=== PATIENT | male | born 1975 | race Caucasian/White ===

== ENCOUNTER 2022-11-30 22:58 | Emergency (ER) | payer OTHER, SELFPAY ==
--- NOTE | 2022-11-30 | ECG_ITS ---
Test Reason : cp Blood Pressure : / mmHG Vent. Rate : 052 BPM Atrial Rate : 052 BPM P-R Int : 158 ms QRS Dur : 084 ms QT Int : 408 ms P-R-T Axes : 045 039 011 degrees QTc Int : 379 ms Sinus bradycardia Otherwise normal ECG No previous ECGs available Referred By: Generic ED Physician Electronically Signed By:JUAN BOWSER MD
--- NOTE | ~2022-11-30 | XR_ITS ---
EXAMINATION: XR CHEST CLINICAL INFORMATION: Chest pain COMPARISON: None TECHNIQUE: Frontal view of the chest was obtained. FINDINGS: Cardiac silhouette is normal in size. The lungs are well aerated. There is no lobar consolidation. No pleural effusion or pneumothorax. XR/XR chest 1V IMPRESSION: No acute pulmonary pathology.
[2022-11-30 23:07] VITALS: BP 130/43; PULSE 64; O2SAT 100
[2022-11-30 23:24] VITALS: BP 132/66; PULSE 53; RESP 16; TEMP 36.6; O2SAT 97; BMI 37.0
[2022-11-30 23:54] LABS: MANUAL DIFF FLAG NO
[2022-11-30 23:55] LABS: Basophils Percent Auto 0.4 % (0-2); Eosinophils Absolute Auto 0.2 X10*3/uL (0.0-0.4); Eosinophils Percent Auto 3.2 % (0-4); Hematocrit 42.2 % (42.0-52.0); Hemoglobin 14.2 g/dl (14.0-18.0); Imm Gran Abs Auto 0.02 X10*3/uL (0.00-0.03); Imm Gran Pct Auto 0.3 % (0.0-0.4); Lymphocytes Absolute Auto 2.4 X10*3/uL (1.2-4.9); Lymphocytes Percent Auto 33.4 % (20-40); Mean Corpuscular HGB Conc 33.6 g/dl (31.0-36.0); Mean Corpuscular Hemoglobin 30.6 pg (27.0-33.0); Mean Corpuscular Volume 90.9 fL (80.0-98.0); Mean Platelet Volume 9.3 fL (9.4-12.4); Monocytes Absolute Auto 0.7 X10*3/uL (0.1-1.2); Monocytes Percent Auto 9.9 % (2-11); Neutrophils Absolute Auto 3.8 x10*3/uL (2.0-8.3); Neutrophils Percent Auto 52.8 % (45-73); Platelet Count 283 X10*3/uL (160-400); Red Blood Count 4.64 X10*6/uL (4.60-5.80); White Blood Count 7.2 X10*3/uL (4.8-10.8)
[2022-12-01 00:38] LABS: Troponin-I High Sensitivity < 3.5 ng/L (<3.5-35.0)
[2022-12-01 00:56] LABS: Anion Gap 14 (12-20); Blood Urea Nitrogen 17 mg/dL (9-16); Calcium 9.4 mg/dL (8.4-10.2); Carbon Dioxide 26 mmol/L (22-29); Chloride 105 mmol/L (96-108); Creatinine Clr Calc Pharmacy 96.4; Estimated Glomerular Filt Rate > 60; Glucose Random 90 mg/dL (60-115); Potassium 4.5 mmol/L (3.3-5.1); Sodium 140 mmol/L (135-145)
[2022-12-01 03:37] VITALS: BP 119/63; PULSE 55; RESP 16; TEMP 36.7; O2SAT 98
--- NOTE | 2022-12-01 03:39 | MHC.EDTECH ---
PT WAS CALLED BACK TO TRIAGE TO DRAW REPEAT TROP AND RE TAKE VITALS SIGN .
[2022-12-01 04:04] LABS: Troponin-I High Sensitivity < 3.5 ng/L (<3.5-35.0)
[2022-12-01 07:17] VITALS: BP 121/52; PULSE 51; RESP 18; TEMP 36.8; O2SAT 99
[2022-12-01 07:42] VITALS: BP 128/66; PULSE 51; RESP 17; TEMP 36.8; O2SAT 99
[2022-12-01 08:38] VITALS: BP 148/45; PULSE 53; RESP 17; TEMP 36.6; O2SAT 98
[2022-12-01 09:11] LABS: Alanine Aminotransferase 28 U/L (0-40); Albumin Level 4.4 g/dL (3.5-5.0); Alkaline Phosphatase 69 U/L (39-117); Aspartate Amino Transferase 16 U/L (5-37); Bilirubin Direct 0.2 mg/dL (0.0-0.5); Bilirubin Total 1.1 mg/dL (0.0-1.0); Total Protein 7.9 g/dL (6.5-8.0)
[2022-12-01 09:27] LABS: B Type Natriuretic Peptide < 10 pg/mL (<100)
[2022-12-01 09:32] LABS: TSH reflex Free T4 2.42 uIU/mL (0.32-4.0)
--- NOTE | 2022-12-01 09:47 | ED_ITS ---
HPI - Chest Pain General Chief Complaint: Chest Pain Stated Complaint: cp Time Seen by Provider: 12/01/22 08:03 Source: patient Mode of arrival: ambulatory History of Present Illness HPI narrative: 47-year-old male with a past medical history of self-reported arrhythmia, present to the ED complaining chest pain that started yesterday described as sharp lasting a few minutes with associated palpitations and mild SOB. Reports mild room spinning dizziness associated with chest pain. Asymptomatic at present. Denies headache, vision loss, nausea, vomiting, paresthesias, new or worsening pedal edema MD complaint: chest pain Related Data Allergies Allergy/AdvReac Type Severity Reaction Status Date / Time No Known Allergies Allergy Verified 11/30/22 23:29 Review of Systems Review of Systems: Constitutional: No Fever, No Chills, No Fatigue, No Malaise ENT/Mouth: No Ear Pain, No Nasal Congestion, No sore throat, No Rhinorrhea, No Swallowing Difficulty Eyes: No Eye Pain, No Swelling, No Redness Cardiovascular: + Chest Pain, + SOB, No Dyspnea on Exertion, No Orthopnea, No Edema, + Palpitations Respiratory: No Cough, No Sputum, No Dyspnea Gastrointestinal: No Nausea, No Vomiting, No Diarrhea, No Constipation, No Abdominal pain Genitourinary: No Dysuria, No Hematuria, No Flank Pain, No Urinary Flow Changes Musculoskeletal: No joint pain, No Myalgias, No Joint Swelling Skin: No Skin Lesions, No rash Neuro: No Weakness, No Numbness, No Paresthesias, No Loss of Consciousness, + Dizziness (resolved), No Headache Yes all other systems are reviewed and are negative Constitutional: Constitutional: Reports as per [facility] Past Medical History Attestation statement: The following information was validated with the patient. Social History Social History Advance Directives: No Physical Exam Vital Signs: Vital Signs: Last Vital Signs Temp 97.8 F 12/01/22 08:38 Pulse 53 12/01/22 08:38 Resp 17 12/01/22 08:38 BP 148/45 H 12/01/22 08:38 Pulse Ox 98 12/01/22 08:38 O2 Del Method 12/01/22 08:38 BMI result Body Mass Index 37.0 Const: General: cooperative, healthy appearing and no acute distress Orie ntation/consciousness: patient oriented x3 Limitations: no limitations HEENT: Head: Yes normal to inspection and Yes atraumatic Ears: hearing grossly normal bilaterally General nose exam: Normal external nose present Face and sinus: Yes normal facial exam Eyes: General: appearance normal, both eyes and all related structures EOM: EOMs intact bilaterally Neck: Neck: Yes normal visual inspection and Yes no meningeal signs Resp: Effort & Inspection: normal respiratory effort and no respiratory distress Auscultation: clear to auscultation bilaterally, no crackles, no rales, no rhonchi and no wheezes Cardio: Rate: regular rate Heart sounds: S1 normal heart sound present and S2 normal heart sound present GI: Inspection: Yes normal to inspection Palpation (GI): Soft to palpation, nontender, no guarding and not rigid Skin: Rashes: no rashes Wounds: no wounds Neuro: General: patient oriented x3, tone normal and no meningeal signs Gait exam (Neuro): Normal gait present Extrem: Other: 1+ bilateral pitting edema General: Yes normal to inspection Course Course Course Narrative: -labs reassuring. Troponin x2 negative. TSH WNL -CXR unremarkable Results discussed with patient including worrisome signs and symptoms and strict return precautions, and when to return to the emergency department. They verbalized understanding and feel safe for discharge at this time. Medical Decision Making Medical Decision Making [facility] Narrative: 47-year-old male with a past medical history of self-reported arrhythmia, present to the ED complaining chest pain that started yesterday described as sharp lasting a few minutes with associated palpitations and mild SOB. On exam vital signs stable, NAD, nontoxic appearing, asymptomatic, lungs CTA, abdomen soft/nontender, chronic pedal edema noted. Concern for ACS. Symptoms atypical for PE/CHF or pneumonia. Plan: EKG, labs, CXR Please refer to course for remaining clinical decision making, interpretation of labs/imaging results, and discussions with consultants and/or family members. Differential Diagnosis Differential Diagnoses: The differential diagnosis associated with the prese ntation includes as above Admission/Observation Consideration of admission/observation: Escalation of care including admission/ observation considered Lab Data [facility] Lab Attestation statement: I reviewed the patient's lab results. 11/30/22 23:49 11/30/22 23:49 Labs: Lab Results 11/30/22 11/30/22 11/30/22 Range/Units 23:49 23:49 23:49 WBC 7.2 (4.8-10.8) X10*3/uL RBC 4.64 (4.60-5.80) X10*6/uL Hgb 14.2 (14.0-18.0) g/dl Hct 42.2 (42.0-52.0) % MCV 90.9 (80.0-98.0) fL MCH 30.6 (27.0-33.0) pg MCHC 33.6 (31.0-36.0) g/dl RDW 13.0 (11.0-16.0) % Plt Count 283 (160-400) X10*3/uL MPV 9.3 L (9.4-12.4) fL Immature Gran % (Auto) 0.3 (0.0-0.4) % Neut % (Auto) 52.8 (45-73) % Lymph % (Auto) 33.4 (20-40) % [place] % (Auto) 9.9 (2-11) % Eos % (Auto) 3.2 (0-4) % Baso % (Auto) 0.4 (0-2) % Lymph # (Auto) 2.4 (1.2-4.9) X10*3/uL [place] # (Auto) 0.7 (0.1-1.2) X10*3/uL Eos # (Auto) 0.2 (0.0-0.4) X10*3/uL Baso # (Auto) 0.0 (0.0-0.2) X10*3/uL Abs Immat Gran (auto) 0.02 (0.00-0.03) X10*3/uL Absolute Neuts (auto) 3.8 (2.0-8.3) x10*3/uL Absolute Nucleated RBC 0.000 (0.0-0.012) X10*3/uL Nucleated RBC % (auto) 0.0 (0.0-0.2) /100WBC Sodium 140 (135-145) mmol/L Potassium 4.5 (3.3-5.1) mmol/L Chloride 105 (96-108) mmol/L Carbon Dioxide 26 (22-29) mmol/L Anion Gap 14 (12-20) BUN 17 H (9-16) mg/dL Creatinine 1.20 (0.5-1.4) mg/dL Estim Creat Clear Calc 96.4 Estimated GFR > 60 Random Glucose 90 (60-115) mg/dL Calcium 9.4 (8.4-10.2) mg/dL Magnesium (1.6-2.6) mg/dL Total Bilirubin (0.0-1.0) mg/dL Direct Bilirubin (0.0-0.5) mg/dL AST (5-37) U/L ALT (0-40) U/L Alkaline Phosphatase (39-117) U/L Troponin I High Sens < 3.5 (<3.5-35.0) ng/L B-Natriuretic Peptide (<100) pg/mL Total Protein (6.5-8.0) g/dL Albumin (3.5-5.0) g/dL TSH (0.32-4.0) uIU/mL 12/01/22 12/01/22 12/01/22 Range/Units 03:36 08:30 08:31 WBC (4.8-10.8) X10*3/uL RBC (4.60-5.80) X10*6/uL Hgb (14.0-18.0) g/dl Hct (42.0-52.0) % MCV (80.0-98.0) fL MCH (27.0-33.0) pg MCHC (31.0-36.0) g/dl RDW (11.0-16.0) % Plt Count (160-400) X10*3/uL MPV (9.4-12.4) fL Immature Gran % (Auto) (0.0-0.4) % Neut % (Auto) (45-73) % Lymph % (Auto) (20-40) % [place] % (Auto) (2-11) % Eos % (Auto) (0-4) % Baso % (Auto) (0-2) % Lymph # (Auto) (1.2-4.9) X10*3/uL [place] # (Auto) (0.1-1.2) X10*3/uL Eos # (Auto) (0.0-0.4) X10*3/uL Baso # (Auto) (0.0-0.2) X10*3/uL Abs Immat Gran (auto) (0.00-0.03) X10*3/uL Absolute Neuts (auto) (2.0-8.3) x10*3/uL Absolute Nucleated RBC (0.0-0.012) X10*3/uL Nucleated RBC % (auto) (0.0-0.2) /100WBC Sodium (135-145) mmol/L Potassium (3.3-5.1) mmol/L Chloride (96-108) mmol/L Carbon Dioxide (22-29) mmol/L Anion Gap (12-20) BUN (9-16) mg/dL Creatinine (0.5-1.4) mg/dL Estim Creat Clear Calc Estimated GFR Random Glucose (60-115) mg/dL Calcium (8.4-10.2) mg/dL Magnesium 2.0 (1.6-2.6) mg/dL Total Bilirubin 1.1 H (0.0-1.0) mg/dL Direct Bilirubin 0.2 (0.0-0.5) mg/dL AST 16 (5-37) U/L ALT 28 (0-40) U/L Alkaline Phosphatase 69 (39-117) U/L Troponin I High Sens < 3.5 (<3.5-35.0) ng/L B-Natriuretic Peptide (<100) pg/mL Total Protein 7.9 (6.5-8.0) g/dL Albumin 4.4 (3.5-5.0) g/dL TSH 2.42 (0.32-4.0) uIU/mL 12/01/22 Range/Units 09:00 WBC (4.8-10.8) X10*3/uL RBC (4.60-5.80) X10*6/uL Hgb (14.0-18.0) g/dl Hct (42.0-52.0) % MCV (80.0-98.0) fL MCH (27.0-33.0) pg MCHC (31.0-36.0) g/dl RDW (11.0-16.0) % Plt Count (160-400) X10*3/uL MPV (9.4-12.4) fL Immature Gran % (Auto) (0.0-0.4) % Neut % (Auto) (45-73) % Lymph % (Auto) (20-40) % [place] % (Auto) (2-11) % Eos % (Auto) (0-4) % Baso % (Auto) (0-2) % Lymph # (Auto) (1.2-4.9) X10*3/uL [place] # (Auto) (0.1-1.2) X10*3/uL Eos # (Auto) (0.0-0.4) X10*3/uL Baso # (Auto) (0.0-0.2) X10*3/uL Abs Immat Gran (auto) (0.00-0.03) X10*3/uL Absolute Neuts (auto) (2.0-8.3) x10*3/uL Absolute Nucleated RBC (0.0-0.012) X10*3/uL Nucleated RBC % (auto) (0.0-0.2) /100WBC Sodium (135-145) mmol/L Potassium (3.3-5.1) mmol/L Chloride (96-108) mmol/L Carbon Dioxide (22-29) mmol/L Anion Gap (12-20) BUN (9-16) mg/dL Creatinine (0.5-1.4) mg/dL Estim Creat Clear Calc Estimated GFR Random Glucose (60-115) mg/dL Calcium (8.4-10.2) mg/dL Magnesium (1.6-2.6) mg/dL Total Bilirubin (0.0-1.0) mg/dL Direct Bilirubin (0.0-0.5) mg/dL AST (5-37) U/L ALT (0-40) U/L Alkaline Phosphatase (39-117) U/L Troponin I High Sens (<3.5-35.0) ng/L B-Natriuretic Peptide < 10 (<100) pg/mL Total Protein (6.5-8.0) g/dL Albumin (3.5-5.0) g/dL TSH (0.32-4.0) uIU/mL Independent Interpretation I performed an independent interpretation of an: EKG Interpretation: My interpretation EKG sinus bradycardia rate of 52. [place] interval 158. QTC 379. No STEMI. Radiology Impression Discussion of test interpretation with radiology: I have reviewed the radiol ogist's reading. External Record Review External record reviewed: Outpatient record, Prior outpatient labs and Outside ED record Chronic Conditions Patient?s care impacted by: Other Discharge Plan Discharge Clinical Impression: Chest pain Patient Disposition: Home, Self-Care Instructions: Chest Pain (DC) Additional Instructions: Your blood work and chest x-ray were reassuring. Please of close follow-up with your doctor as well as Cardiology. If symptoms persist or worsen you develop constant worsening chest pain, shortness of breath, fever, swelling in her legs return to the ED Singer an?lisis de jace y la radiograf?a de t?rax fueron tranquilizadores. Por favor, ephraim un seguimiento cercano con singer m?dico y con Cardiolog?a. Si los s?ntomas persisten o empeoran, presenta un dolor en el pecho que empeora constantemente, dificultad para respirar, fiebre, hinchaz?n en las piernas. Regrese al servicio de urgencias. [place] [facility] [place] Group] Physician,Maria Guadalupe J [Primary Care Provider] - Interventions: ED Discharge Assessment Last Done: 12/01/22 10:11 Discharge Date/Time: 12/01/22 10:14 Print Language: Japanese
== END 2022-12-01 10:14 | disposition home or self-care (01) ==
PROVIDERS: Physician Assistant; Emergency Provider Emergency Medicine
DX: R07.89 Other chest pain (principal); I49.9 Cardiac arrhythmia, unspecified; R06.02 Shortness of breath; Z79.899 Other long term (current) drug therapy
CPT/HCPCS: 36415; 71045; 80048; 80076; 83735; 83880; 84443; 84484; 85025; 93005; 99283

== ENCOUNTER 2022-12-26 23:45 | Emergency (ER) | payer OTHER, SELFPAY ==
--- NOTE | ~2022-12-26 | XR_ITS ---
EXAMINATION: XR CHEST CLINICAL INFORMATION: Chest pain COMPARISON: 12/01/2022 TECHNIQUE: Frontal view of the chest was obtained. FINDINGS: Cardiac leads overlie the chest. The lungs are well expanded. There is no focal consolidation, edema, or effusion. No pneumothorax. The cardiomediastinal silhouette is within normal limits. No acute osseous abnormality. XR/XR chest 1V IMPRESSION: No acute pulmonary disease.
[2022-12-26 23:53] VITALS: BP 129/79; BP 181/73; PULSE 70; PULSE 71; RESP 12; TEMP 36.8; O2SAT 97; BMI 35.9
--- NOTE | 2022-12-26 23:53 | ECG_ITS ---
Test Reason : CHEST PAIN Blood Pressure : / mmHG Vent. Rate : 066 BPM Atrial Rate : 066 BPM P-R Int : 158 ms QRS Dur : 078 ms QT Int : 364 ms P-R-T Axes : 047 015 -06 degrees QTc Int : 381 ms Normal sinus rhythm Normal ECG When compared with ECG of 30-NOV-2022 23:34, No significant change was found Referred By: Dia Robison Electronically Signed By:ANGELA LEWIS
[2022-12-27 00:13] LABS: MANUAL DIFF FLAG NO
[2022-12-27 00:14] LABS: Basophils Percent Auto 0.4 % (0-2); Eosinophils Absolute Auto 0.2 X10*3/uL (0.0-0.4); Eosinophils Percent Auto 2.5 % (0-4); Hematocrit 43.1 % (42.0-52.0); Hemoglobin 14.2 g/dl (14.0-18.0); Imm Gran Abs Auto 0.01 X10*3/uL (0.00-0.03); Imm Gran Pct Auto 0.1 % (0.0-0.4); Lymphocytes Absolute Auto 2.3 X10*3/uL (1.2-4.9); Lymphocytes Percent Auto 33.7 % (20-40); Mean Corpuscular HGB Conc 32.9 g/dl (31.0-36.0); Mean Corpuscular Hemoglobin 29.9 pg (27.0-33.0); Mean Corpuscular Volume 90.7 fL (80.0-98.0); Mean Platelet Volume 9.3 fL (9.4-12.4); Monocytes Absolute Auto 0.7 X10*3/uL (0.1-1.2); Monocytes Percent Auto 10.7 % (2-11); Neutrophils Absolute Auto 3.5 x10*3/uL (2.0-8.3); Neutrophils Percent Auto 52.6 % (45-73); Platelet Count 311 X10*3/uL (160-400); Red Blood Count 4.75 X10*6/uL (4.60-5.80); Red Cell Distribution Width 12.7 % (11.0-16.0); White Blood Count 6.7 X10*3/uL (4.8-10.8)
--- NOTE | 2022-12-27 00:24 | PC.NURSE ---
Pt aox3 resting at the bedside. Breaths are even, regular and unlabored. NSR on monitor with HR 60. VSS. Skin warm pink and dry. Reports chest pain, 7/10. EKG and labs done. 20G IV line done by EMS prior to arrival. Pending lab results and physician eval. Will continue to monitor.
[2022-12-27 00:26] LABS: COVID-19 Test Negative (Negative); IDNOW Serial# 6674DD1D
[2022-12-27 00:29] LABS: Alanine Aminotransferase 19 U/L (0-40); Albumin Level 4.3 g/dL (3.5-5.0); Alkaline Phosphatase 63 U/L (39-117); Anion Gap 12 (12-20); Aspartate Amino Transferase 13 U/L (5-37); Bilirubin Total 0.5 mg/dL (0.0-1.0); Blood Urea Nitrogen 22 mg/dL (9-16); Calcium 9.4 mg/dL (8.4-10.2); Carbon Dioxide 25 mmol/L (22-29); Chloride 106 mmol/L (96-108); Creatinine Clr Calc Pharmacy 81.3; Estimated Glomerular Filt Rate 54; Glucose Random 123 mg/dL (60-115); Potassium 4.1 mmol/L (3.3-5.1); Sodium 139 mmol/L (135-145); Total Protein 7.3 g/dL (6.5-8.0)
[2022-12-27 00:35] LABS: Troponin-I High Sensitivity < 3.5 ng/L (<3.5-35.0)
--- NOTE | 2022-12-27 00:53 | ED.CHESTPAIN ---
HPI - Chest Pain General Chief Complaint: Chest Pain Stated Complaint: CARLOS RAMIREZ X20 MINS Time Seen by Provider: 12/26/22 23:52 History of Present Illness HPI narrative: Patient is a 47-year-old male presents today with having chest pain. Positive history of hypertension. Positive previous history of smoking. Was watching TV when he developed chest pain. The chest pain was mid chest. Kind of sharp. Start in the neck then moved to the chest. Patient denies any radiation to the back. Lasted approximately 2-3 minutes. EMS was called. Still has a fairly constant component in the chest still. Patient denies any diaphoresis. At some mild shortness of breath associated with the symptoms. Had a similar bouts of chest pain earlier this month. Never had a risk stratification done. No history of leg swelling. No history of blood clots. No travel history. Patient from home. No recreational drug use. Related Data Allergies Allergy/AdvReac Type Severity Reaction Status Date / Time No Known Allergies Allergy Verified 11/30/22 23:29 Review of Systems Review of Systems: Positive chest pain Yes all other systems are reviewed and are negative [facility] [place] Past Medical History Attestation statement: The following information was validated with the patient. Social History Social History Advance Directives: No Physical Exam Vital Signs: Vital Signs: Last Vital Signs Temp 97.9 F 12/27/22 01:24 Pulse 56 12/27/22 01:24 Resp 17 12/27/22 01:24 BP 101/63 12/27/22 01:24 Pulse Ox 96 12/27/22 01:24 O2 Del Method Room Air 12/27/22 01:24 BMI result Body Mass Index 35.9 Appearance: Alert. Oriented X3. No acute distress. Eyes: Pupils equal, round and reactive to light. ENT: Pharynx normal. Neck: Normal inspection. Neck supple. No lymph nodes noted. No crepitus CVS: Normal heart rate and rhythm. Pulses normal. Normal S1 and S2 Respiratory: No respiratory distress. Breath sounds normal. No Wheezing. No rales Abdomen: Soft and nontender. No rigidity. No distention. good BS x4 Skin: Skin warm and dry. Normal skin color. Normal skin turgor. Extremities: No lower extremity edema. Neurovascular intact to all extremities. No Lacerations. No Rash Neuro: Oriented X 3. No motor deficit. No sensory deficit. Moving all extermities. No slurred speech Medical Decision Making Medical Decision Making [facility] Narrative: Patient presents today with having chest pain. Claims the pain started at approximately 10:30 while patient was watching TV. Patient's pain was somewhat sharp. There is no leg swelling. There is no risk factors for PE. Patient's D-dimer is negative. In the setting of low wrist negative D-dimer patient is unlikely to have pulmonary emboli. Patient's pain atypical for ACS he does have risk factors of hypertension and previous history of smoking. First set enzymes are negative. Getting a 2nd set enzymes were negative patient's heart score less than 3 with an atypical history, 2 risk factor 47 years old negative troponin. Will have patient follow-up on an outpatient basis. Patient's chest x-ray showed no pneumonia no pneumothorax. He is currently in stable condition. Differential Diagnosis Pneumonia, pneumothorax, pulmonary emboli, ACS Admission/Observation Consideration of admission/observation: Escalation of care including admission/observation considered Lab Data [facility] Lab Attestation statement: I reviewed the patient's lab results. 12/27/22 00:06 12/27/22 00:06 Labs: Lab Results 12/27/22 12/27/22 12/27/22 Range/Units 00:06 00:06 00:06 WBC 6.7 (4.8-10.8) X10*3/uL RBC 4.75 (4.60-5.80) X10*6/uL Hgb 14.2 (14.0-18.0) g/dl Hct 43.1 (42.0-52.0) % MCV 90.7 (80.0-98.0) fL MCH 29.9 (27.0-33.0) pg MCHC 32.9 (31.0-36.0) g/dl RDW 12.7 (11.0-16.0) % Plt Count 311 (160-400) X10*3/uL MPV 9.3 L (9.4-12.4) fL Immature Gran % (Auto) 0.1 (0.0-0.4) % Neut % (Auto) 52.6 (45-73) % Lymph % (Auto) 33.7 (20-40) % [place] % (Auto) 10.7 (2-11) % Eos % (Auto) 2.5 (0-4) % Baso % (Auto) 0.4 (0-2) % Lymph # (Auto) 2.3 (1.2-4.9) X10*3/uL [place] # (Auto) 0.7 (0.1-1.2) X10*3/uL Eos # (Auto) 0.2 (0.0-0.4) X10*3/uL Baso # (Auto) 0.0 (0.0-0.2) X10*3/uL Abs Immat Gran (auto) 0.01 (0.00-0.03) X10*3/uL Absolute Neuts (auto) 3.5 (2.0-8.3) x10*3/uL Absolute Nucleated RBC 0.000 (0.0-0.012) X10*3/uL Nucleated RBC % (auto) 0.0 (0.0-0.2) /100WBC D-Dimer High Sensitivty NG/ML Sodium 139 (135-145) mmol/L Potassium 4.1 (3.3-5.1) mmol/L Chloride 106 (96-108) mmol/L Carbon Dioxide 25 (22-29) mmol/L Anion Gap 12 (12-20) BUN 22 H (9-16) mg/dL Creatinine 1.40 (0.5-1.4) mg/dL Estim Creat Clear Calc 81.3 Estimated GFR 54 Random Glucose 123 H (60-115) mg/dL Calcium 9.4 (8.4-10.2) mg/dL Total Bilirubin 0.5 (0.0-1.0) mg/dL AST 13 (5-37) U/L ALT 19 (0-40) U/L Alkaline Phosphatase 63 (39-117) U/L Troponin I High Sens < 3.5 (<3.5-35.0) ng/L Total Protein 7.3 (6.5-8.0) g/dL Albumin 4.3 (3.5-5.0) g/dL COVID-19 (JAVI) (Negative) COVID-19 Clin Com 12/27/22 12/27/22 Range/Units 00:06 00:59 WBC (4.8-10.8) X10*3/uL RBC (4.60-5.80) X10*6/uL Hgb (14.0-18.0) g/dl Hct (42.0-52.0) % MCV (80.0-98.0) fL MCH (27.0-33.0) pg MCHC (31.0-36.0) g/dl RDW (11.0-16.0) % Plt Count (160-400) X10*3/uL MPV (9.4-12.4) fL Immature Gran % (Auto) (0.0-0.4) % Neut % (Auto) (45-73) % Lymph % (Auto) (20-40) % [place] % (Auto) (2-11) % Eos % (Auto) (0-4) % Baso % (Auto) (0-2) % Lymph # (Auto) (1.2-4.9) X10*3/uL [place] # (Auto) (0.1-1.2) X10*3/uL Eos # (Auto) (0.0-0.4) X10*3/uL Baso # (Auto) (0.0-0.2) X10*3/uL Abs Immat Gran (auto) (0.00-0.03) X10*3/uL Absolute Neuts (auto) (2.0-8.3) x10*3/uL Absolute Nucleated RBC (0.0-0.012) X10*3/uL Nucleated RBC % (auto) (0.0-0.2) /100WBC D-Dimer High Sensitivty < 150 NG/ML Sodium (135-145) mmol/L Potassium (3.3-5.1) mmol/L Chloride (96-108) mmol/L Carbon Dioxide (22-29) mmol/L Anion Gap (12-20) BUN (9-16) mg/dL Creatinine (0.5-1.4) mg/dL Estim Creat Clear Calc Estimated GFR Random Glucose (60-115) mg/dL Calcium (8.4-10.2) mg/dL Total Bilirubin (0.0-1.0) mg/dL AST (5-37) U/L ALT (0-40) U/L Alkaline Phosphatase (39-117) U/L Troponin I High Sens (<3.5-35.0) ng/L Total Protein (6.5-8.0) g/dL Albumin (3.5-5.0) g/dL COVID-19 (JAVI) Negative (Negative) COVID-19 Clin Com See Note Independent Interpretation I performed an independent interpretation of an: EKG and Plain X-Ray Interpretation: Chest x-ray was negative My interpretation patient's EKG showed a sinus pattern heart rate is 70 DE QRS QT within normal limits is no acute ST segment elevation. Radiology Impression Discussion of test interpretation with radiology: I have reviewed the radiologist's reading. External Record Review External record reviewed: Inpatient record Previous ED record previous EKG Tests considered The following testing was considered but not selected: CTA of the chest not done because patient's D-dimer is negative Chronic Conditions Patient?s care impacted by: Hypertension Discharge Plan Discharge Clinical Impression: Chest pain Patient Disposition: Home, Self-Care Instructions: Chest Pain (DC) Referrals: Farhat Ureña MD [Physician] - Print Language: South Korean
[2022-12-27 01:24] VITALS: BP 101/63; PULSE 56; RESP 17; TEMP 36.6; O2SAT 96
[2022-12-27 01:25] LABS: D Dimer High Sensitivity < 150 NG/ML
[2022-12-27 02:37] LABS: Troponin-I High Sensitivity < 3.5 ng/L (<3.5-35.0)
[2022-12-27 03:00] VITALS: BP 121/74; PULSE 59; RESP 12; TEMP 36.7; O2SAT 96
--- NOTE | 2022-12-27 03:04 | PC.NURSE ---
Pt aox3 resting at the bedside in no apparent distress. Breaths are even, regular, and unlabored. NSR on monitor with HR 60. IV line removed with no complications. Pt tolerated well. Discharge instructions reviewed with pt. Pt verbalizes understanding. Ambulates with cane and steady gait at discharge.
== END 2022-12-27 03:07 | disposition home or self-care (01) ==
PROVIDERS: Emergency Provider Emergency Medicine Emergency Medical Services; PCP Physician Assistant Medical
DX: R07.9 Chest pain, unspecified (principal); Z20.822 Contact with and (suspected) exposure to COVID-19; I10 Essential (primary) hypertension; Z87.891 Personal history of nicotine dependence
CPT/HCPCS: 36415; 71045; 80053; 84484; 85025; 85379; 87635; 93005; 99283; 99284

== ENCOUNTER 2023-02-06 22:08 | Emergency (ER) | payer OTHER, SELFPAY ==
--- NOTE | 2023-02-06 22:23 | ED_ITS ---
HPI - Chest Pain General Chief Complaint: Chest Pain Stated Complaint: CP Time Seen by Provider: 02/06/23 22:15 Source: patient Mode of arrival: ambulatory Limitations: no limitations History of Present Illness HPI narrative: Patient with no known coronary disease with history hypertension anxiety depression questionable sleep apnea comes in for sharp pain left side of the chest off and on started just prior to pain is sharp electric-like lasting for few seconds to minutes with radiation to the head. No shortness of breath no diaphoresis no palpitation pain increases on palpation. Related Data Previous Rx's Medication Instructions Recorded ibuprofen 600 mg tablet 600 mg PO Q6H PRN fever or pain 02/07/23 #30 tabs Allergies Allergy/AdvReac Type Severity Reaction Status Date / Time No Known Allergies Allergy Verified 11/30/22 23:29 Review of Systems Review of Systems: Yes all other systems are reviewed and are negative [facility] Social History Social History Alcohol intake: never Smoked in Last 30 Days: No Use of substances other than those prescribed or required for medical reasons: No Advance Directives: No Advance Directives Information Provided: Yes Physical Exam Vital Signs: Vital Signs: Last Vital Signs Temp 98.0 F 02/06/23 22:34 Pulse 75 02/06/23 22:36 Resp 16 02/06/23 22:36 BP 135/68 02/06/23 22:36 Pulse Ox 97 02/06/23 22:36 O2 Del Method Room Air 02/06/23 22:36 BMI result Body Mass Index 36.9 Appearance: Alert. Oriented X3. No acute distress. Eyes: PERRLA, No Nystagmus ENT: Pharynx normal. Oral Mucosa moist Neck: Normal inspection. Neck supple. CVS: Normal heart rate and rhythm. Pulses normal. Respiratory: No respiratory distress. Equal air entry bilateral, no w heezing/rales/rhonchi tender left anterior chest wall Abdomen: Soft and nontender. Bowel sounds are present, no mass palpable, no CVA tenderness Skin: Skin warm and dry. Normal skin color. Normal skin turgor. Extremities: No lower extremity edema. No calf tenderness Neuro: Oriented X 3. No motor deficit. Medications Administered Discontinued Medications Generic Name Dose Route Start Last Admin Trade Name Freq PRN Reason Stop Dose Admin Ibuprofen 600 mg 02/07/23 00:02 02/07/23 00:07 Ibuprofen 600 Mg Tablet PO 02/07/23 00:03 600 mg ONCE ONE Administration Lorazepam 1 mg 02/06/23 22:33 02/06/23 22:48 Lorazepam 1 Mg Tablet PO 02/06/23 22:34 1 mg ONCE ONE Administration Medical Decision Making Medical Decision Making [facility] Narrative: . Atypical chest pain with increased anxiety symptoms improved after Ativan normal troponin no acute ischemic changes, will discharge patient Lab Data [facility] Lab Attestation statement: I reviewed the patient's lab results. 02/06/23 22:39 02/06/23 22:39 Labs: Lab Results 02/06/23 02/06/23 02/06/23 Range/Units 22:39 22:39 22:39 WBC 7.4 (4.8-10.8) X10*3/uL RBC 4.55 L (4.60-5.80) X10*6/uL Hgb 13.9 L (14.0-18.0) g/dl Hct 41.4 L (42.0-52.0) % MCV 91.0 (80.0-98.0) fL MCH 30.5 (27.0-33.0) pg MCHC 33.6 (31.0-36.0) g/dl RDW 12.7 (11.0-16.0) % Plt Count 268 (160-400) X10*3/uL MPV 9.5 (9.4-12.4) fL Immature Gran % (Auto) 0.3 (0.0-0.4) % Neut % (Auto) 45.0 (45-73) % Lymph % (Auto) 39.8 (20-40) % [place] % (Auto) 11.3 H (2-11) % Eos % (Auto) 3.1 (0-4) % Baso % (Auto) 0.5 (0-2) % Lymph # (Auto) 3.0 (1.2-4.9) X10*3/uL [place] # (Auto) 0.8 (0.1-1.2) X10*3/uL Eos # (Auto) 0.2 (0.0-0.4) X10*3/uL Baso # (Auto) 0.0 (0.0-0.2) X10*3/uL Abs Immat Gran (auto) 0.02 (0.00-0.03) X10*3/uL Absolute Neuts (auto) 3.3 (2.0-8.3) x10*3/uL Absolute Nucleated RBC 0.000 (0.0-0.012) X10*3/uL Nucleated RBC % (auto) 0.0 (0.0-0.2) /100WBC Sodium 141 (135-145) mmol/L Potassium 4.1 (3.3-5.1) mmol/L Chloride 107 (96-108) mmol/L Carbon Dioxide 24 (22-29) mmol/L Anion Gap 14 (12-20) BUN 18 H (9-16) mg/dL Creatinine 1.26 (0.5-1.4) mg/dL Estim Creat Clear Calc 91.7 Estimated GFR > 60 Random Glucose 102 (60-115) mg/dL Calcium 9.0 (8.4-10.2) mg/dL Total Bilirubin 0.5 (0.0-1.0) mg/dL AST 14 (5-37) U/L ALT 22 (0-40) U/L Alkaline Phosphatase 65 (39-117) U/L Troponin I High Sens 4.5 (<3.5-35.0) ng/L Total Protein 7.6 (6.5-8.0) g/dL Albumin 4.3 (3.5-5.0) g/dL Independent Interpretation I performed an independent interpretation of an: EKG Interpretation: Normal sinus rhythm heart rate 65 beats per minute normal interval normal axis no acute ST-T changes no acute ischemia Discharge Plan Discharge Clinical Impression: Chest pain Patient Disposition: Home, Self-Care Instructions: Chest Pain (ED) Additional Instructions: Your chest pain is likely musculoskeletal pain with anxiety Ibuprofen for pain Follow with PCP for further management Es probable que monteiro dolor de pecho sea un dolor musculoesquel?zeina con ansiedad ibuprofeno para el dolor Siga con PCP para un manejo posterior Prescriptions: New ibuprofen 600 mg tablet 600 mg PO Q6H PRN (Reason: fever or pain) Qty: 30 0RF Interventions: ED Discharge Assessment Last Done: 02/07/23 00:15 Discharge Date/Time: 02/07/23 00:17 Print Language: Sinhala
[2023-02-06 22:24] VITALS: BP 164/89; PULSE 75; O2SAT 98
--- NOTE | 2023-02-06 22:24 | ECG_ITS ---
Test Reason : CHEST PAIN Blood Pressure : / mmHG Vent. Rate : 065 BPM Atrial Rate : 065 BPM P-R Int : 150 ms QRS Dur : 078 ms QT Int : 360 ms P-R-T Axes : 046 021 -07 degrees QTc Int : 374 ms Normal sinus rhythm with sinus arrhythmia Normal ECG When compared with ECG of 26-DEC-2022 23:56, No significant change was found Referred By: Robbie Rinaldi Electronically Signed By:ANGELA LEWIS
[2023-02-06 22:34] VITALS: BP 164/89; PULSE 74; RESP 16; TEMP 36.7; O2SAT 97; BMI 36.9
[2023-02-06 22:36] VITALS: BP 135/68; PULSE 75; RESP 16; O2SAT 97
[2023-02-06] MEDS: LORazepam 1 MG TABLET PO (22:48)
[2023-02-06 22:54] LABS: MANUAL DIFF FLAG NO
[2023-02-06 23:02] LABS: Basophils Percent Auto 0.5 % (0-2); Eosinophils Absolute Auto 0.2 X10*3/uL (0.0-0.4); Eosinophils Percent Auto 3.1 % (0-4); Hematocrit 41.4 % (42.0-52.0); Hemoglobin 13.9 g/dl (14.0-18.0); Imm Gran Abs Auto 0.02 X10*3/uL (0.00-0.03); Imm Gran Pct Auto 0.3 % (0.0-0.4); Lymphocytes Percent Auto 39.8 % (20-40); Mean Corpuscular HGB Conc 33.6 g/dl (31.0-36.0); Mean Corpuscular Hemoglobin 30.5 pg (27.0-33.0); Mean Platelet Volume 9.5 fL (9.4-12.4); Monocytes Absolute Auto 0.8 X10*3/uL (0.1-1.2); Monocytes Percent Auto 11.3 % (2-11); Neutrophils Absolute Auto 3.3 x10*3/uL (2.0-8.3); Platelet Count 268 X10*3/uL (160-400); Red Blood Count 4.55 X10*6/uL (4.60-5.80); Red Cell Distribution Width 12.7 % (11.0-16.0); White Blood Count 7.4 X10*3/uL (4.8-10.8)
[2023-02-06 23:09] LABS: Alanine Aminotransferase 22 U/L (0-40); Albumin Level 4.3 g/dL (3.5-5.0); Alkaline Phosphatase 65 U/L (39-117); Anion Gap 14 (12-20); Aspartate Amino Transferase 14 U/L (5-37); Bilirubin Total 0.5 mg/dL (0.0-1.0); Blood Urea Nitrogen 18 mg/dL (9-16); Carbon Dioxide 24 mmol/L (22-29); Chloride 107 mmol/L (96-108); Creatinine Clr Calc Pharmacy 91.7; Estimated Glomerular Filt Rate > 60; Glucose Random 102 mg/dL (60-115); Potassium 4.1 mmol/L (3.3-5.1); Sodium 141 mmol/L (135-145); Total Protein 7.6 g/dL (6.5-8.0)
[2023-02-06 23:15] LABS: Troponin-I High Sensitivity 4.5 ng/L (<3.5-35.0)
[2023-02-07] MEDS: Ibuprofen 600 MG TABLET PO (00:07)
== END 2023-02-07 00:17 | disposition home or self-care (01) ==
PROVIDERS: Emergency Provider Internal Medicine
DX: R07.89 Other chest pain (principal); F41.1 Generalized anxiety disorder; F43.0 Acute stress reaction; Z79.899 Other long term (current) drug therapy
CPT/HCPCS: 36415; 80053; 84484; 85025; 93005; 99283; 99285

== ENCOUNTER 2023-03-02 08:57 | Emergency (ER) | payer OTHER, SELFPAY ==
--- NOTE | ~2023-03-02 | XR_ITS ---
EXAMINATION: XR CHEST CLINICAL INFORMATION: Chest pain. COMPARISON: 12/19/2022 chest radiograph. TECHNIQUE: Frontal view of the chest was obtained. FINDINGS: No significant abnormality is noted involving the heart, lungs, mediastinum, bony thorax or soft tissues. XR/XR chest 1V IMPRESSION: No acute cardiopulmonary process.
[2023-03-02 09:04] VITALS: BP 125/69; BP 138/79; PULSE 63; PULSE 86; RESP 14; TEMP 36.9; O2SAT 97; BMI 36.7
--- NOTE | 2023-03-02 09:37 | ECG_ITS ---
Test Reason : CP Blood Pressure : / mmHG Vent. Rate : 059 BPM Atrial Rate : 059 BPM P-R Int : 152 ms QRS Dur : 080 ms QT Int : 388 ms P-R-T Axes : 033 028 006 degrees QTc Int : 384 ms Sinus bradycardia Otherwise normal ECG When compared with ECG of 06-FEB-2023 22:30, No significant change was found Referred By: Generic ED Physician Electronically Signed By:JUAN BOWSER MD
[2023-03-02 10:35] LABS: Hematocrit 43.2 % (42.0-52.0); Hemoglobin 14.4 g/dl (14.0-18.0); Mean Corpuscular HGB Conc 33.3 g/dl (31.0-36.0); Mean Corpuscular Hemoglobin 30.3 pg (27.0-33.0); Mean Corpuscular Volume 90.8 fL (80.0-98.0); Mean Platelet Volume 9.6 fL (9.4-12.4); Platelet Count 266 X10*3/uL (160-400); Red Blood Count 4.76 X10*6/uL (4.60-5.80); Red Cell Distribution Width 12.8 % (11.0-16.0); White Blood Count 6.9 X10*3/uL (4.8-10.8)
[2023-03-02 10:54] LABS: Anion Gap 13 (12-20); Blood Urea Nitrogen 17 mg/dL (9-16); Calcium 9.4 mg/dL (8.4-10.2); Carbon Dioxide 24 mmol/L (22-29); Chloride 106 mmol/L (96-108); Creatinine Clr Calc Pharmacy 93.7; Estimated Glomerular Filt Rate > 60; Glucose Random 104 mg/dL (60-115); Potassium 4.6 mmol/L (3.3-5.1); Sodium 138 mmol/L (135-145)
[2023-03-02 11:03] LABS: Troponin-I High Sensitivity 5.7 ng/L (<3.5-35.0)
--- NOTE | 2023-03-02 11:08 | ED_ITS ---
HPI - Chest Pain General Chief Complaint: Chest Pain Stated Complaint: CHEST PAIN,LEG WEAKNESS PER EMS Time Seen by Provider: 03/02/23 10:59 Source: patient Mode of arrival: ambulatory History of Present Illness HPI narrative: At 7am this morning he got chest pain, he became dizzy and weak all over. Took his blood pressure and heart medications. No prior CAD, no stress test, history of cath. Patient does suffer from chest pain. He was walking to the bus when he got chest pain. Chest pain lasted 3 minutes but it came back and the d iscomfort lasted hours. Never had pain with walking. The pain was described as electric shock and pressure. Not smoking or drinking. MD complaint: chest pain Onset (ago): hour(s) Timing of current episode: constant Pain location: left chest Related Data Previous Rx's Medication Instructions Recorded ibuprofen 600 mg tablet 600 mg PO Q6H PRN fever or pain 02/07/23 #30 tabs Allergies Allergy/AdvReac Type Severity Reaction Status Date / Time No Known Allergies Allergy Verified 11/30/22 23:29 [facility] Social History Social History Alcohol intake: never Smoked in Last 30 Days: No Use of substances other than those prescribed or required for medical reasons: No Advance Directives: No Physical Exam Vital Signs: Vital Signs: Last Vital Signs Temp 98.6 F 03/02/23 12:05 Pulse 52 03/02/23 12:05 Resp 14 03/02/23 12:05 BP 109/72 03/02/23 12:05 Pulse Ox 97 03/02/23 12:05 O2 Del Method Room Air 03/02/23 12:05 BMI result Body Mass Index 36.7 Course Reevaluation(s) Reevaluation #1: After review of old charts patient has been here 4 times in 2 months for CP, Troponin is flat will encourage outpatient stress test Time: 13:29 Medical Decision Making Differential Diagnosis Differential Diagnoses: The differential diagnosis associated with the presentation includes (CAD, pneumonia, PTx, anxiety were all considered) Admission/Observation Consideration of admission/observation: Escalation of care including admission/observation considered (In this 47yo male with CP and HTN, admission was considered upon my seeing the patient) Lab Data MDM Lab Attestation statement: I reviewed the patient's lab results. 03/02/23 10:27 06/01/23 10:27 Labs: Lab Results 03/02/23 03/02/23 03/02/23 Range/Units 10:27 10:27 10:27 WBC 6.9 (4.8-10.8) X10*3/uL RBC 4.76 (4.60-5.80) X10*6/uL Hgb 14.4 (14.0-18.0) g/dl Hct 43.2 (42.0-52.0) % MCV 90.8 (80.0-98.0) fL MCH 30.3 (27.0-33.0) pg MCHC 33.3 (31.0-36.0) g/dl RDW 12.8 (11.0-16.0) % Plt Count 266 (160-400) X10*3/uL MPV 9.6 (9.4-12.4) fL Absolute Nucleated RBC 0.000 (0.0-0.012) X10*3/uL Nucleated RBC % (auto) 0.0 (0.0-0.2) /100WBC Sodium 138 (135-145) mmol/L Potassium 4.6 (3.3-5.1) mmol/L Chloride 106 (96-108) mmol/L Carbon Dioxide 24 (22-29) mmol/L Anion Gap 13 (12-20) BUN 17 H (9-16) mg/dL Creatinine 1.23 (0.5-1.4) mg/dL Estim Creat Clear Calc 93.7 Estimated GFR > 60 Random Glucose 104 (60-115) mg/dL Calcium 9.4 (8.4-10.2) mg/dL Troponin I High Sens 5.7 (<3.5-35.0) ng/L 03/02/23 Range/Units 12:06 WBC (4.8-10.8) X10*3/uL RBC (4.60-5.80) X10*6/uL Hgb (14.0-18.0) g/dl Hct (42.0-52.0) % MCV (80.0-98.0) fL MCH (27.0-33.0) pg MCHC (31.0-36.0) g/dl RDW (11.0-16.0) % Plt Count (160-400) X10*3/uL MPV (9.4-12.4) fL Absolute Nucleated RBC (0.0-0.012) X10*3/uL Nucleated RBC % (auto) (0.0-0.2) /100WBC Sodium (135-145) mmol/L Potassium (3.3-5.1) mmol/L Chloride (96-108) mmol/L Carbon Dioxide (22-29) mmol/L Anion Gap (12-20) BUN (9-16) mg/dL Creatinine (0.5-1.4) mg/dL Estim Creat Clear Calc Estimated GFR Random Glucose (60-115) mg/dL Calcium (8.4-10.2) mg/dL Troponin I High Sens 4.4 (<3.5-35.0) ng/L Independent Interpretation I performed an independent interpretation of an: EKG (sinus 60, no st or twave changes) and Plain X-Ray (CXR: no infiltrate) External Record Review External record reviewed: Outpatient record and Prior outpatient labs Chronic Conditions Patient?s care impacted by: Hypertension Social Determinants Patient?s care significantly limited by Social Determinants of Health including: Low income Discharge Plan Discharge Clinical Impression: Chest pain, Atypical chest pain Patient Disposition: Home, Self-Care Instructions: Chest Pain (ED) Additional Instructions: you must speak to your doctor about obtaining a stress test Prescriptions: No Action ibuprofen 600 mg tablet 600 mg PO Q6H PRN (Reason: fever or pain) Qty: 30 0RF Referrals: Emerald Valentin PA [Primary Care Provider] - 3 days
[2023-03-02 12:05] VITALS: BP 109/72; PULSE 52; RESP 14; TEMP 37; O2SAT 97
[2023-03-02 12:42] LABS: Troponin-I High Sensitivity 4.4 ng/L (<3.5-35.0)
[2023-03-02 14:13] VITALS: PULSE 88; RESP 16; TEMP 36.8
== END 2023-03-02 14:16 | disposition home or self-care (01) ==
PROVIDERS: Emergency Provider Emergency Medicine; PCP Physician Assistant Medical
DX: R07.89 Other chest pain (principal); Z79.899 Other long term (current) drug therapy
CPT/HCPCS: 36415; 71045; 80048; 84484; 85027; 93005; 99283; 99285

== ENCOUNTER 2023-03-30 18:21 | Emergency (ER) | payer OTHER, SELFPAY ==
[2023-03-30 18:41] VITALS: BP 150/85; PULSE 62; RESP 18; TEMP 37.7; O2SAT 98; BMI 37.6
--- NOTE | 2023-03-30 18:42 | ECG_ITS ---
Test Reason : CHEST PAIN Blood Pressure : / mmHG Vent. Rate : 064 BPM Atrial Rate : 064 BPM P-R Int : 156 ms QRS Dur : 076 ms QT Int : 366 ms P-R-T Axes : 036 024 -04 degrees QTc Int : 377 ms Normal sinus rhythm Normal ECG When compared with ECG of 02-MAR-2023 10:14, No significant change was found Referred By: Generic ED Physician Electronically Signed By:Omega Altman
[2023-03-30 19:08] LABS: Basophils Percent Auto 0.4 % (0-2); Eosinophils Absolute Auto 0.1 X10*3/uL (0.0-0.4); Eosinophils Percent Auto 1.6 % (0-4); Hematocrit 42.9 % (42.0-52.0); Hemoglobin 14.3 g/dl (14.0-18.0); Imm Gran Abs Auto 0.02 X10*3/uL (0.00-0.03); Imm Gran Pct Auto 0.2 % (0.0-0.4); Lymphocytes Absolute Auto 2.2 X10*3/uL (1.2-4.9); Lymphocytes Percent Auto 26.9 % (20-40); MANUAL DIFF FLAG NO; Mean Corpuscular HGB Conc 33.3 g/dl (31.0-36.0); Mean Corpuscular Hemoglobin 31.3 pg (27.0-33.0); Mean Corpuscular Volume 93.9 fL (80.0-98.0); Mean Platelet Volume 9.7 fL (9.4-12.4); Monocytes Absolute Auto 0.7 X10*3/uL (0.1-1.2); Monocytes Percent Auto 8.2 % (2-11); Neutrophils Absolute Auto 5.2 x10*3/uL (2.0-8.3); Neutrophils Percent Auto 62.7 % (45-73); Platelet Count 262 X10*3/uL (160-400); Red Blood Count 4.57 X10*6/uL (4.60-5.80); Red Cell Distribution Width 12.9 % (11.0-16.0); White Blood Count 8.3 X10*3/uL (4.8-10.8)
--- NOTE | 2023-03-30 19:16 | PC.NURSE ---
Pt is ca&ox4, reports 7/10 left chest pain that radiates to neck bilaterally that began an hour ago. No signs of distress. wctm.
[2023-03-30 19:21] LABS: Alanine Aminotransferase 16 U/L (0-40); Albumin Level 4.3 g/dL (3.5-5.0); Alkaline Phosphatase 67 U/L (39-117); Anion Gap 14 (12-20); Aspartate Amino Transferase 15 U/L (5-37); Bilirubin Total 0.6 mg/dL (0.0-1.0); Blood Urea Nitrogen 16 mg/dL (9-16); Calcium 9.7 mg/dL (8.4-10.2); Carbon Dioxide 25 mmol/L (22-29); Chloride 106 mmol/L (96-108); Creatinine Clr Calc Pharmacy 94.1; Estimated Glomerular Filt Rate > 60; Glucose Random 92 mg/dL (60-115); Potassium 4.6 mmol/L (3.3-5.1); Sodium 140 mmol/L (135-145); Total Protein 7.7 g/dL (6.5-8.0)
--- NOTE | 2023-03-30 19:21 | ED_ITS ---
HPI - Chest Pain General Chief Complaint: Chest Pain Stated Complaint: chest pains radiating to neck walking, per ems Time Seen by Provider: 03/30/23 19:08 Source: patient Mode of arrival: ambulatory Limitations: no limitations History of Present Illness HPI narrative: Patient will history of hypertension, anxiety disorder been having chest pain for the last 6 months off and on been here 4 times at least workup was negative plan to see truss maker last visit was 03/02. Today he comes at around 18:00 he notices palpitation with chest pain in the neck pain felt very anxious after pain is sharp and with pressure reproducable on palpation no shortness of breath prior to my evaluation patient had cardiogram and labs done which were negative for any coronary event Related Data Previous Rx's Medication Instructions Recorded ibuprofen 600 mg tablet 600 mg PO Q6H PRN fever or pain 02/07/23 #30 tabs tramadol 50 mg tablet 50 mg PO Q6H PRN pain #20 tabs 03/30/23 Allergies Allergy/AdvReac Type Severity Reaction Status Date / Time aspirin [ASA] Allergy Unknown Verified 03/30/23 18:48 ibuprofen Allergy Anaphylaxis Verified 03/30/23 21:12 Review of Systems 2 Review of Systems: Yes all other systems are reviewed and are negative COUNTS INCLUDE 234 BEDS AT THE [facility] Social History Social History Alcohol intake: never Advance Directives: No Advance Directives Information Provided: No Physical Exam Vital Signs: Vital Signs: Last Vital Signs Temp 99.8 F 03/30/23 18:41 Pulse 62 03/30/23 18:41 Resp 18 03/30/23 18:41 BP 150/85 H 03/30/23 18:41 Pulse Ox 98 03/30/23 18:41 O2 Del Method Room Air 03/30/23 18:41 BMI result Body Mass Index 37.6 Appearance: Alert. Oriented X3. No acute distress. Anxious Eyes: PERRLA, No Nystagmus ENT: Pharynx normal. Oral Mucosa moist Neck: Normal inspection. Neck supple. CVS: Normal heart rate and rhythm. Pulses normal. Respiratory: No respiratory distress. Equal air entry bilateral, no wheezing/rales/rhonchi chest wall tenderness Abdomen: Soft and nontender. Bowel sounds are present, no mass palpable, no CVA tenderness Skin: Skin warm and dry. Normal skin color. Normal skin turgor. Extremities: No lower extremity edema. No calf tenderness Neuro: Oriented X 3. No motor deficit. No sensory deficit.No cerebellar signs , cranial nerves II-XII intact Medications Administered Discontinued Medications Generic Name Dose Route Start Last Admin Trade Name Alicia PRN Reason Stop Dose Admin Ketorolac Tromethamine 30 mg 03/30/23 19:48 03/30/23 20:05 Ketorolac Tromethamine 30 Mg/Ml Vial IVPUSH 03/30/23 19:49 Not Given ONCE ONE Tramadol HCl 50 mg 03/30/23 20:11 03/30/23 20:38 Tramadol Hcl 50 Mg Tablet PO 03/30/23 20:12 50 mg ONCE ONE Administration Medical Decision Making Medical Decision Making [facility] Narrative: Patient with recurrent atypical chest pain with anxiety disorder multiple troponins negative this time also patient has similar pain troponins negative EKG without any ischemic changes patient does of palpitation and anxiety patient advised to follow-up with truss maker/PCP for stress test further evaluation Lab Data [facility] Lab Attestation statement: I reviewed the patient's lab results. 03/30/23 19:03 03/30/23 19:03 Labs: Lab Results 03/30/23 03/30/23 03/30/23 Range/Units 19:03 19:03 19:03 WBC 8.3 (4.8-10.8) X10*3/uL RBC 4.57 L (4.60-5.80) X10*6/uL Hgb 14.3 (14.0-18.0) g/dl Hct 42.9 (42.0-52.0) % MCV 93.9 (80.0-98.0) fL MCH 31.3 (27.0-33.0) pg MCHC 33.3 (31.0-36.0) g/dl RDW 12.9 (11.0-16.0) % Plt Count 262 (160-400) X10*3/uL MPV 9.7 (9.4-12.4) fL Immature Gran % (Auto) 0.2 (0.0-0.4) % Neut % (Auto) 62.7 (45-73) % Lymph % (Auto) 26.9 (20-40) % [place] % (Auto) 8.2 (2-11) % Eos % (Auto) 1.6 (0-4) % Baso % (Auto) 0.4 (0-2) % Lymph # (Auto) 2.2 (1.2-4.9) X10*3/uL [place] # (Auto) 0.7 (0.1-1.2) X10*3/uL Eos # (Auto) 0.1 (0.0-0.4) X10*3/uL Baso # (Auto) 0.0 (0.0-0.2) X10*3/uL Abs Immat Gran (auto) 0.02 (0.00-0.03) X10*3/uL Absolute Neuts (auto) 5.2 (2.0-8.3) x10*3/uL Absolute Nucleated RBC 0.000 (0.0-0.012) X10*3/uL Nucleated RBC % (auto) 0.0 (0.0-0.2) /100WBC Sodium 140 (135-145) mmol/L Potassium 4.6 (3.3-5.1) mmol/L Chloride 106 (96-108) mmol/L Carbon Dioxide 25 (22-29) mmol/L Anion Gap 14 (12-20) BUN 16 (9-16) mg/dL Creatinine 1.24 (0.5-1.4) mg/dL Estim Creat Clear Calc 94.1 Estimated GFR > 60 Random Glucose 92 (60-115) mg/dL Calcium 9.7 (8.4-10.2) mg/dL Total Bilirubin 0.6 (0.0-1.0) mg/dL AST 15 (5-37) U/L ALT 16 (0-40) U/L Alkaline Phosphatase 67 (39-117) U/L Troponin I High Sens < 2.7 (<3.5-35.0) ng/L Total Protein 7.7 (6.5-8.0) g/dL Albumin 4.3 (3.5-5.0) g/dL Independent Interpretation I performed an independent interpretation of an: EKG Interpretation: Normal sinus rhythm heart rate 64 beats per minute normal interval normal axis no acute ST depressions and no acute ischemia Discharge Plan Discharge Clinical Impression: Chest pain, Anxiety Patient Disposition: Home, Self-Care Instructions: Chest Pain (ED), Anxiety (ED) Additional Instructions: Continue your anxiety medications Tramadol for pain Follow-up with your PCP/truss maker for further evaluation Report to the ER with the chest pain gets worse Contin?e con jase medicamentos para la ansiedad tramadol para el dolor Seguimiento con monteiro PCP/cardi?logo para soo evaluaci?n adicional Informe a la yenny de emergencias si el dolor en el pecho empeora Prescriptions: New tramadol 50 mg tablet 50 mg PO Q6H PRN (Reason: pain) Qty: 20 0RF No Action ibuprofen 600 mg tablet 600 mg PO Q6H PRN (Reason: fever or pain) Qty: 30 0RF Referrals: Farhat Ureña MD [Physician] - 2 weeks Print Language: [place] Islander
[2023-03-30 19:30] LABS: Troponin-I High Sensitivity < 2.7 ng/L (<3.5-35.0)
[2023-03-30] MEDS: traMADoL HCL 50 MG TABLET PO (20:38)
--- NOTE | 2023-03-30 20:46 | PC.NURSE ---
Pt medicated per nov. Pt ambulated to bathroom with walking cane. wctm.
--- NOTE | 2023-03-30 21:14 | PC.NURSE ---
MD in with pt. Ibuprofen added to allergies as pt reports throat swells when he takes it. wctm.
== END 2023-03-30 21:35 | disposition home or self-care (01) ==
PROVIDERS: Emergency Provider Internal Medicine
DX: R07.89 Other chest pain (principal); F41.1 Generalized anxiety disorder; F43.0 Acute stress reaction; M54.2 Cervicalgia; Z79.899 Other long term (current) drug therapy
CPT/HCPCS: 36415; 80053; 84484; 85025; 93005; 99283; 99285

== ENCOUNTER 2023-03-31 09:44 | Emergency (ER) | payer OTHER, SELFPAY ==
--- NOTE | 2023-03-31 09:52 | ECG_ITS ---
Test Reason : CP Blood Pressure : / mmHG Vent. Rate : 059 BPM Atrial Rate : 059 BPM P-R Int : 158 ms QRS Dur : 078 ms QT Int : 388 ms P-R-T Axes : 037 022 001 degrees QTc Int : 384 ms Sinus bradycardia Otherwise normal ECG When compared with ECG of 30-MAR-2023 18:42, No significant change was found Referred By: Katiuska Quan Electronically Signed By:Omega Altman
--- NOTE | 2023-03-31 09:52 | ED.CHESTPAIN ---
HPI - Chest Pain General Chief Complaint: Chest Pain Stated Complaint: chest pain Time Seen by Provider: 03/31/23 09:49 Source: patient and application support analyst Mode of arrival: EMS Limitations: no limitations History of Present Illness HPI narrative: 47 year old male with history of hypertension and anxiety disorder on Buspar presenting today with continued left sided chest pain and anxiety since being discharged from our facility 24 hours ago. Patient has a history of multiple ED visits for anxiety and chest pain, negative for ACS. Patient returns today with continued pain, stating that his chest pain never fully resolved since being discharged yesterday. He woke up this morning with left sided, 6/10 chest pain along with shortness of breath while laying in bed which has now resolved. No radiation of pain. He states his chest pain feels like his previous episodes. He took his Buspar at 0600 this morning without relief. He last saw his psychiatrist last month who is aware of his recent ED visits. Denies N/V, shortness of breath, lower extremity pain/ swelling. MD complaint: chest pain Pertinent past history: other (anxiety) Onset (ago): day(s) (1) Timing of current episode: constant Prior episodes: Yes Pain location: left chest Pain radiation: none Relieving factors: nothing Exacerbating factors: other (anxiety) Related Data Previous Rx's Medication Instructions Recorded ibuprofen 600 mg tablet 600 mg PO Q6H PRN fever or pain 02/07/23 #30 tabs tramadol 50 mg tablet 50 mg PO Q6H PRN pain #20 tabs 03/30/23 Allergies Allergy/AdvReac Type Severity Reaction Status Date / Time aspirin [ASA] Allergy Unknown Verified 03/30/23 18:48 ibuprofen Allergy Anaphylaxis Verified 03/30/23 21:12 Review of Systems Review of Systems: Yes all other systems are reviewed and are negative [facility] Past Medical History Attestation statement: The following information was validated with the patient. Source: old records reviewed and nursing notes reviewed Social History Social History Alcohol intake: never Smoked in Last 30 Days: No Use of substances other than those prescribed or required for medical reasons: No Advance Directives: No Advance Directives Information Provided: No Physical Exam Vital Signs: Vital Signs: Last Vital Signs Temp 98.6 F 03/31/23 10:00 Pulse 64 03/31/23 10:00 Resp 12 03/31/23 10:00 BP 143/80 H 03/31/23 10:00 Pulse Ox 99 03/31/23 10:00 O2 Del Method Room Air 03/31/23 10:00 BMI result Body Mass Index 37.0 Const: Other: Appearance: Alert. Oriented X3. No acute distress. Head: normocephalic, atraumatic. Eyes: Pupils equal, round and reactive to light. Neck: Normal inspection. Neck supple. CVS: Normal heart rate and rhythm. Pulses normal. Respiratory: No respiratory distress. Breath sounds normal. Abdomen: Soft and nontender. +BS x4 Skin: Skin warm and dry. Normal skin color. Normal skin turgor. No rashes. Extremities: No lower extremity edema. No joint swelling. Neuro/psych: Oriented X 3. Medications Administered Discontinued Medications Generic Name Dose Route Start Last Admin Trade Name Freq PRN Reason Stop Dose Admin Lorazepam 1 mg 03/31/23 10:51 03/31/23 11:05 Lorazepam 1 Mg Tablet PO 03/31/23 10:52 1 mg ONCE ONE Administration Medical Decision Making Medical Decision Making [facility] Narrative: 47 year old male with history of hypertension and anxiety disorder on Buspar presenting today with continued left sided chest pain and anxiety since being discharged from our facility 24 hours ago. Vital signs notable for elevated blood pressure. Physical exam unremarkable. Plan: EKG, troponin, CBC labs and EKG unremarkable. patient with several similar presentations in the past, last was yesterday. pain does not seem to be cardiac and most likely related to anxiety. he has a psychiatrist and is on buspar. stable for d/c home with close psych follow up. Differential Diagnosis Differential Diagnoses: The differential diagnosis associated with the presentation includes (ACS, anxiety, arrhythmia, doubt PE or dissection) Lab Data [facility] Lab Attestation statement: I reviewed the patient's lab results. troponin <5 not c/w cardiac ischemia 03/31/23 10:27 03/31/23 10:28 Labs: Lab Results 03/31/23 03/31/23 03/31/23 Range/Units 10:27 10:28 10:28 WBC 8.7 (4.8-10.8) X10*3/uL RBC 4.50 L (4.60-5.80) X10*6/uL Hgb 13.7 L (14.0-18.0) g/dl Hct 41.0 L (42.0-52.0) % MCV 91.1 (80.0-98.0) fL MCH 30.4 (27.0-33.0) pg MCHC 33.4 (31.0-36.0) g/dl RDW 12.7 (11.0-16.0) % Plt Count 270 (160-400) X10*3/uL MPV 9.4 (9.4-12.4) fL Immature Gran % (Auto) 0.1 (0.0-0.4) % Neut % (Auto) 82.3 H (45-73) % Lymph % (Auto) 13.5 L (20-40) % Sutter % (Auto) 3.9 (2-11) % Eos % (Auto) 0.1 (0-4) % Baso % (Auto) 0.1 (0-2) % Lymph # (Auto) 1.2 (1.2-4.9) X10*3/uL Sutter # (Auto) 0.3 (0.1-1.2) X10*3/uL Eos # (Auto) 0.0 (0.0-0.4) X10*3/uL Baso # (Auto) 0.0 (0.0-0.2) X10*3/uL Abs Immat Gran (auto) 0.01 (0.00-0.03) X10*3/uL Absolute Neuts (auto) 7.2 (2.0-8.3) x10*3/uL Absolute Nucleated RBC 0.000 (0.0-0.012) X10*3/uL Nucleated RBC % (auto) 0.0 (0.0-0.2) /100WBC Sodium 139 (135-145) mmol/L Potassium 4.7 (3.3-5.1) mmol/L Chloride 105 (96-108) mmol/L Carbon Dioxide 26 (22-29) mmol/L Anion Gap 13 (12-20) BUN 16 (9-16) mg/dL Creatinine 1.24 (0.5-1.4) mg/dL Estim Creat Clear Calc 93.3 Estimated GFR > 60 Random Glucose 109 (60-115) mg/dL Calcium 9.8 (8.4-10.2) mg/dL Total Bilirubin 1.1 H (0.0-1.0) mg/dL AST 12 (5-37) U/L ALT 15 (0-40) U/L Alkaline Phosphatase 72 (39-117) U/L Troponin I High Sens 4.5 D (<3.5-35.0) ng/L Total Protein 7.4 (6.5-8.0) g/dL Albumin 4.2 (3.5-5.0) g/dL Independent Interpretation I performed an independent interpretation of an: EKG Interpretation: sinus bradycardia, hr 59 bpm, t wave inversion in lead III that was present yesterday. no st segment elevations or depressions Independent Historian Clinical information obtained from an independent historian. History obtained from or confirmed by: EMS External Record Review External record reviewed: Office record, Outpatient record, Prior outpatient labs and Prior outpatient radiology Tests considered The following testing was considered but not selected: CTA considered to r/o PE given his 2nd visit however clinical presentation not consistent with PE or dissection. no risk factors. Prescription Management I considered prescription management with: Other (anxiolytic) Chronic Conditions Patient?s care impacted by: Other (anxiety ) Social Determinants Patient?s care significantly limited by Social Determinants of Health including: Problems related to primary support group and Other Social Determinant of Health Critical Care Time Critical Care Time Critical Care Time: No Discharge Plan Discharge Clinical Impression: Atypical chest pain, Anxiety Patient Disposition: Home, Self-Care Instructions: Chest Pain (ED), Anxiety (ED) Additional Instructions: Your labs were normal. Your EKG was reassuring. This is likely caused by your anxiety. Continue your home anxiety medication. Follow-up with your provider regarding this ED visit. Return to ED if your chest pain worsens. If you develop new or worsening symptoms call 911 or come back to the ER for further evaluation. Tus laboratorios fueron normales. Monteiro electrocardiograma fue tranquilizador. [place] es probablemente causado por monteiro ansiedad. Contin?e con monteiro medicamento para la ansiedad en el hogar. Rozina un seguimiento con monteiro proveedor con respecto a esta visita al servicio de urgencias. Regrese al servicio de urgencias si monteiro dolor de pecho empeora. Si desarrolla s?ntomas nuevos o que empeoran, llame al 911 o regrese a la yenny de emergencias para soo evaluaci?n adicional. Prescriptions: No Action ibuprofen 600 mg tablet 600 mg PO Q6H PRN (Reason: fever or pain) Qty: 30 0RF tramadol 50 mg tablet 50 mg PO Q6H PRN (Reason: pain) Qty: 20 0RF Referrals: Physician,Unknown J [Primary Care Provider] - 5 days Print Language: Bangladeshi
[2023-03-31 10:00] VITALS: BP 143/80; BP 157/86; PULSE 64; PULSE 77; RESP 12; TEMP 37; O2SAT 99; BMI 37.0
[2023-03-31 10:31] LABS: MANUAL DIFF FLAG NO
[2023-03-31 10:34] LABS: Basophils Percent Auto 0.1 % (0-2); Eosinophils Percent Auto 0.1 % (0-4); Hemoglobin 13.7 g/dl (14.0-18.0); Imm Gran Abs Auto 0.01 X10*3/uL (0.00-0.03); Imm Gran Pct Auto 0.1 % (0.0-0.4); Lymphocytes Absolute Auto 1.2 X10*3/uL (1.2-4.9); Lymphocytes Percent Auto 13.5 % (20-40); Mean Corpuscular HGB Conc 33.4 g/dl (31.0-36.0); Mean Corpuscular Hemoglobin 30.4 pg (27.0-33.0); Mean Corpuscular Volume 91.1 fL (80.0-98.0); Mean Platelet Volume 9.4 fL (9.4-12.4); Monocytes Absolute Auto 0.3 X10*3/uL (0.1-1.2); Monocytes Percent Auto 3.9 % (2-11); Neutrophils Absolute Auto 7.2 x10*3/uL (2.0-8.3); Neutrophils Percent Auto 82.3 % (45-73); Platelet Count 270 X10*3/uL (160-400); Red Cell Distribution Width 12.7 % (11.0-16.0); White Blood Count 8.7 X10*3/uL (4.8-10.8)
[2023-03-31 10:50] LABS: Alanine Aminotransferase 15 U/L (0-40); Albumin Level 4.2 g/dL (3.5-5.0); Alkaline Phosphatase 72 U/L (39-117); Anion Gap 13 (12-20); Aspartate Amino Transferase 12 U/L (5-37); Bilirubin Total 1.1 mg/dL (0.0-1.0); Blood Urea Nitrogen 16 mg/dL (9-16); Calcium 9.8 mg/dL (8.4-10.2); Carbon Dioxide 26 mmol/L (22-29); Chloride 105 mmol/L (96-108); Creatinine Clr Calc Pharmacy 93.3; Estimated Glomerular Filt Rate > 60; Glucose Random 109 mg/dL (60-115); Potassium 4.7 mmol/L (3.3-5.1); Sodium 139 mmol/L (135-145); Total Protein 7.4 g/dL (6.5-8.0)
[2023-03-31 10:57] LABS: Troponin-I High Sensitivity 4.5 ng/L (<3.5-35.0)
[2023-03-31] MEDS: LORazepam 1 MG TABLET PO (11:05)
--- NOTE | 2023-03-31 11:20 | PC.NURSE ---
Pt alert, stated he still has a 6/10 pain to right chest and is feeling anxious. Ativan administered PO, pending effects, call manzanares with in reach.
[2023-03-31 12:04] VITALS: BP 141/81; PULSE 70; RESP 16; O2SAT 98
== END 2023-03-31 12:10 | disposition home or self-care (01) ==
PROVIDERS: Physician Assistant; Emergency Provider Emergency Medicine Emergency Medical Services
DX: R07.89 Other chest pain (principal); F41.9 Anxiety disorder, unspecified; R06.02 Shortness of breath; I10 Essential (primary) hypertension
CPT/HCPCS: 36415; 80053; 84484; 85025; 93005; 99283; 99284; 99285

== ENCOUNTER 2023-05-16 10:52 | Inpatient (IN) | payer OTHER, SELFPAY ==
[2023-05-16] VITALS (7 sets, daily range): BP systolic 106–146; BP diastolic 58–77; PULSE 46–88; RESP 13–18; TEMP 36.8–37; O2SAT 96–100; BMI 32.8
--- NOTE | ~2023-05-16 | US_ITS ---
EXAMINATION: US VENOUS ULTRASOUND WITH DOPPLER LOWER EXTREMITY, BILATERAL CLINICAL INFORMATION: Bilateral lower extremity swelling. COMPARISON: None available. TECHNIQUE: Ultrasound of the deep veins is performed from the hip to the calf with compression sonography and color and pulse Doppler assessment. Spectral analysis with color-flow imaging is performed. FINDINGS: RIGHT: There is normal venous compression and respiratory variation and augmented flow. The visualized common femoral vein, superficial femoral vein, profunda femoral vein, popliteal vein, and the trifurcation region shows no evidence of deep venous thrombosis. There is no significant popliteal fossa cyst. LEFT: There is normal venous compression and respiratory variation and augmented flow. The visualized common femoral vein, superficial femoral vein, profunda femoral vein, popliteal vein, and the trifurcation region shows no evidence of deep venous thrombosis. There is no significant popliteal fossa cyst. If the patient's symptoms persist, followup ultrasound in 5 days 7 days might be of value to exclude proximal propagation from a nonvisualized calf vein. US/US venous duplex LE BI IMPRESSION: No DVT demonstrated in bilateral lower extremities.
--- NOTE | ~2023-05-16 | CT_ITS ---
EXAMINATION: CT ANGIOGRAM OF THE CHEST WITH AND WITHOUT CONTRAST (CT PULMONARY ANGIOGRAM FOR PE) CLINICAL INFORMATION: Reason for Exam CP, elevated D-dimer R/O PE. COMPARISON: 03/02/2023 chest radiograph TECHNIQUE: Prior to contrast administration, noncontrast localization images were obtained. Subsequently, multidetector volumetric imaging was performed from the thoracic inlet to below the diaphragms following the administration of 80 mL Omnipaque 350 intravenous contrast. No contrast reaction reported Sagittal, coronal, and MIP oblique sagittal reformatted images were obtained on the CT workstation, uploaded to PACS, and reviewed. This CT examination was performed using dose optimization techniques as appropriate, variously including the following: *Automated exposure control *Adjustment of mA and/or kV according to patient size (this includes techniques or standardized protocols for targeted exams where dose is matched to indication/reason for exam; i.e. extremities or head) *Use of iterative reconstruction technique Total exam dose-length product 448 mGy-cm FINDINGS: GEOPHYSICAL PROSPECTING SURVEYOR: Prominent cardiac silhouette. QUALITY OF STUDY/CONTRAST BOLUS: Satisfactory. HEART, GREAT VESSELS, PULMONARY ARTERIES: Heart size upper limits of normal. No pericardial effusion. Degree of coronary calcifications: Mild. Nonaneurysmal aorta with patency of the branch vessels. Nonenlarged pulmonary arteries. Right lower lobe intraarterial filling defects, axial 5:40,41, coronal 8:54, 55, sagittal 9:79, 80, 81. There are also filling defects within right middle lobe segmental branches. No ventricular bowing nor significant contrast reflux into the inferior vena cava. LUNGS: Trachea and bronchi are patent. 2 mm subpleural RUL nodule with possible tiny calcification. Tiny LLL granuloma. PLEURA: No pleural effusion or pneumothorax. MEDIASTINUM: Unremarkable thyroid. No pathologic lymphadenopathy. CHEST WALL/AXILLA: No axillary or internal mammary lymphadenopathy. Nonspecific bilateral axillary lymph nodes. OSSEOUS STRUCTURES: Minimal dextroscoliosis. UPPER ABDOMEN: Unremarkable. No reflux of contrast into the hepatic veins to suggest elevated right heart pressures. CT/CT angio chest PE protocol IMPRESSION: Right lower lobe and right middle lobe pulmonary emboli. VTE: Positive
--- NOTE | 2023-05-16 10:59 | ECG_ITS ---
Test Reason : CHEST PAIN Blood Pressure : / mmHG Vent. Rate : 059 BPM Atrial Rate : 059 BPM P-R Int : 150 ms QRS Dur : 078 ms QT Int : 380 ms P-R-T Axes : 051 028 001 degrees QTc Int : 376 ms Sinus bradycardia Otherwise normal ECG When compared with ECG of 31-MAR-2023 09:53, No significant change was found Referred By: Generic ED Physician Electronically Signed By:CYNTHIA ANG
[2023-05-16 11:22] LABS: MANUAL DIFF FLAG NO
[2023-05-16 11:26] LABS: Basophils Percent Auto 0.3 % (0-2); Eosinophils Percent Auto 0.3 % (0-4); Hematocrit 44.3 % (42.0-52.0); Hemoglobin 14.4 g/dl (14.0-18.0); Imm Gran Abs Auto 0.01 X10*3/uL (0.00-0.03); Imm Gran Pct Auto 0.1 % (0.0-0.4); Lymphocytes Absolute Auto 1.4 X10*3/uL (1.2-4.9); Lymphocytes Percent Auto 21.1 % (20-40); Mean Corpuscular HGB Conc 32.5 g/dl (31.0-36.0); Mean Corpuscular Hemoglobin 30.1 pg (27.0-33.0); Mean Corpuscular Volume 92.7 fL (80.0-98.0); Mean Platelet Volume 9.8 fL (9.4-12.4); Monocytes Absolute Auto 0.4 X10*3/uL (0.1-1.2); Neutrophils Absolute Auto 4.9 x10*3/uL (2.0-8.3); Neutrophils Percent Auto 72.2 % (45-73); Platelet Count 287 X10*3/uL (160-400); Red Blood Count 4.78 X10*6/uL (4.60-5.80); Red Cell Distribution Width 12.3 % (11.0-16.0); White Blood Count 6.8 X10*3/uL (4.8-10.8)
--- NOTE | 2023-05-16 11:38 | ED_ITS ---
HPI - Chest Pain General Chief Complaint: Chest Pain Stated Complaint: R/O subdural c/o dizziness, loss of balance Time Seen by Provider: 05/16/23 11:07 Source: patient, EMS and multi disciplined language analyst Mode of arrival: EMS Limitations: no limitations History of Present Illness HPI narrative: 47-year-old male Irish-speaking only presented for evaluation of chest pain/palpitations/bilateral lower extremities weakness. Symptoms started before arrival around 10:30 while he was on the phone and suddenly started to have palpitation followed by chest pain then started to have lower extremities weakness and his knees gave out patient had to hold to chair to prevent falling. Pain started as 10/10 localized to the anterior chest area with no radiation, now pain is 7/10 pain has been constant, pain was associated dizziness. No trauma to the chest, no recent travel, no lower extremity swelling or tenderness nevertheless, has chronic left ankle discomfort with discoloration of left leg for some years( venous stasis). Related Data Home Medications Medication Instructions Recorded Confirmed aripiprazole 15 mg tablet 7.5 mg PO BEDTIME 05/16/23 05/16/23 atenolol 25 mg tablet 25 mg PO DAILY 05/16/23 05/16/23 baclofen 20 mg tablet 20 mg PO BID PRN Muscle Spasm 05/16/23 05/16/23 buspirone 30 mg tablet 30 mg PO BID PRN Anxiety 05/16/23 05/16/23 fluticasone propionate 50 2 spray intranasal DAILY 05/16/23 05/16/23 mcg/actuation nasal spray,suspension gabapentin 300 mg capsule 300 mg PO TID 05/16/23 05/16/23 trazodone 100 mg tablet 100 mg PO BEDTIME 05/16/23 05/16/23 Allergies Allergy/AdvReac Type Severity Reaction Status Date / Time aspirin [ASA] Allergy Unknown Verified 03/30/23 18:48 ibuprofen Allergy Anaphylaxis Verified 03/30/23 21:12 Review of Systems Review of Systems: All other systems are reviewed and are negative Constitutional: Reports as per HPI and Reports no additional constitutional c omplaints Eyes: Reports as per HPI and Reports no additional eye complaints Reports system reviewed and no additional complaints, except as documented Cardiovascular: Reports as per HPI and Reports no additional cardiovascular complaints Respiratory: Reports as per HPI and Reports no additional respiratory complaints Gastrointestinal: Reports as per HPI and Reports no additional gastrointestinal complaints Genitourinary: Reports no additional female genitourinary complaints Musculoskeletal: Reports no additional musculoskeletal complaints Skin/Breast: Reports system reviewed and no additional complaints, except as docu Psychiatric: Reports no additional psychiatric complaints Endocrine: Reports no additional endocrine complaints Hematologic/Lymphatic: Reports no additional hematologic/lymphatic complaints Allergic/Immunologic: Reports no additional allergic/immunologic complaints Reports system reviewed and no additional complaints, except as documented and Reports Abnormal speech present [facility] Past Medical History Medical History HTN (hypertension) Social History Social History Alcohol intake: never Advance Directives: No Advance Directives Information Provided: Yes Physical Exam Vital Signs: Vital Signs: Last Vital Signs Temp 98.3 F 05/16/23 15:36 Pulse 60 05/16/23 15:36 Resp 15 05/16/23 15:36 BP 124/61 05/16/23 15:36 Pulse Ox 98 05/16/23 15:36 O2 Del Method Room Air 05/16/23 15:36 BMI result Body Mass Index 32.8 Vital signs have been reviewed as appeared to be correct. Blood pressure normal. Heart rate normal. Respiration rate normal. Temperature normal. Oxygen saturation normal. Appearance: Alert. Oriented X3. No acute distress. Head: Normal external exam. Normocephalic. Atraumatic. No Self signs noted. No raccoon eyes noted Eyes: PERRLA. EOMI. Conjunctiva and sclera normal. Eyelids normal. ENT: TM's Normal. Pharynx normal. Uvula midline. Moist mucous membranes. No trismus noted. No drooling noted. No muffled voice noted. Neck: Normal inspection. Neck supple. FROM. No adenopathy. Thyroid Normal. No meningeal signs. No neck mass noted. CVS: Normal heart rate and rhythm. Heart sound normal. No murmurs noted. Pulses normal throughout. Respiratory: No respiratory distress. Painless inspiration. Breath sounds normal. No wheezes/rales/rhonchi noted. Chest nontender. No accessory muscle usage noted or decreased air movement noted. Abdomen: Soft and nontender. Bowel sounds normal in all 4 quadrants. No distention noted. No organomegaly noted. No visible injury noted. Back: No CVA tenderness. Full range of motion noted. Skin: Skin warm and dry. Normal skin color. Normal skin turgor. No rashes/lesions/lacerations noted. Extremities: No lower extremity edema. Extremities exhibit normal range of motion. Extremities nontender. Neuro: Oriented X 3. Cranial nerve exam: II-XII are grossly intact No motor deficit. No sensory deficit. Reflexes normal. Course Course Course Narrative: 47-year-old male presented with sudden onset of chest pain, patient has elevated D-dimer, no risk for pulmonary embolism, no lower extremity pain or swelling, no recent travel. Patient otherwise hemodynamically stable will start the patient on heparin, hospitalization. Medications Administered Generic Name Dose Route Start Last Admin Trade Name Freq PRN Reason Stop Dose Admin Heparin Sodium/Sodium Chloride 25,000 unit in 250 mls @ 0 mls/hr 05/16/23 15:30 05/16/23 16:12 Heparin Sodium,Porcine/1/2ns IVCONT 14 units/kg/hr .Q0M NIKKY 14.92 mls/hr Administration Protocol Per Protocol Discontinued Medications Generic Name Dose Route Start Last Admin Trade Name Freq PRN Reason Stop Dose Admin Heparin Sodium (Porcine) 8,500 unit 05/16/23 15:26 05/16/23 15:59 Heparin Sodium,Porcine 5,000 Unit/Ml Vial 80 unit/kg (8500 unit) 05/16/23 15:27 8,500 unit IVPUSH Administration ONCE ONE Iohexol 65 ml 05/16/23 14:08 05/16/23 14:08 Iohexol 350 Mg/Ml 100 Ml Infus..Btl IV 05/16/23 14:09 65 ml ONCE ONE Administration Medical Decision Making Differential Diagnosis Differential Diagnoses: The differential diagnosis associated with the p resentation includes (ACS, pulmonary embolism, pleural effusion, pneumonia, rib fracture, severe anemia, electrolyte abnormality.) Admission/Observation Consideration of admission/observation: Escalation of care including admission/observation considered Consult Healthcare Provider Management of the patient was discussed with: Hospitalist (Dr. Mclean) Lab Data MDM Lab Attestation statement: I reviewed the patient's lab results. 05/16/23 11:18 05/16/23 11:18 Labs: Lab Results 05/16/23 05/16/23 05/16/23 Range/Units 11:18 11:18 11:18 WBC 6.8 (4.8-10.8) X10*3/uL RBC 4.78 (4.60-5.80) X10*6/uL Hgb 14.4 (14.0-18.0) g/dl Hct 44.3 (42.0-52.0) % MCV 92.7 (80.0-98.0) fL MCH 30.1 (27.0-33.0) pg MCHC 32.5 (31.0-36.0) g/dl RDW 12.3 (11.0-16.0) % Plt Count 287 (160-400) X10*3/uL MPV 9.8 (9.4-12.4) fL Immature Gran % (Auto) 0.1 (0.0-0.4) % Neut % (Auto) 72.2 (45-73) % Lymph % (Auto) 21.1 (20-40) % Barry % (Auto) 6.0 (2-11) % Eos % (Auto) 0.3 (0-4) % Baso % (Auto) 0.3 (0-2) % Lymph # (Auto) 1.4 (1.2-4.9) X10*3/uL Barry # (Auto) 0.4 (0.1-1.2) X10*3/uL Eos # (Auto) 0.0 (0.0-0.4) X10*3/uL Baso # (Auto) 0.0 (0.0-0.2) X10*3/uL Abs Immat Gran (auto) 0.01 (0.00-0.03) X10*3/uL Absolute Neuts (auto) 4.9 (2.0-8.3) x10*3/uL Absolute Nucleated RBC 0.000 (0.0-0.012) X10*3/uL Nucleated RBC % (auto) 0.0 (0.0-0.2) /100WBC PT (11.1-13.3) SEC INR (0.9-1.1) aPTT Heparin Protocol (53-77.9) SEC D-Dimer High Sensitivty NG/ML Sodium 143 (135-145) mmol/L Potassium 4.3 (3.3-5.1) mmol/L Chloride 107 (96-108) mmol/L Carbon Dioxide 30 H (22-29) mmol/L Anion Gap 10 L (12-20) BUN 12 (9-16) mg/dL Creatinine 1.37 (0.5-1.4) mg/dL Estim Creat Clear Calc 81.9 Estimated GFR 55 Random Glucose 104 (60-115) mg/dL Calcium 9.4 (8.4-10.2) mg/dL Total Bilirubin 0.8 (0.0-1.0) mg/dL AST 12 (5-37) U/L ALT 15 (0-40) U/L Alkaline Phosphatase 74 (39-117) U/L Troponin I High Sens 3.4 (<3.5-35.0) ng/L Total Protein 7.5 (6.5-8.0) g/dL Albumin 4.1 (3.5-5.0) g/dL 05/16/23 05/16/23 Range/Units 11:50 15:10 WBC (4.8-10.8) X10*3/uL RBC (4.60-5.80) X10*6/uL Hgb (14.0-18.0) g/dl Hct (42.0-52.0) % MCV (80.0-98.0) fL MCH (27.0-33.0) pg MCHC (31.0-36.0) g/dl RDW (11.0-16.0) % Plt Count (160-400) X10*3/uL MPV (9.4-12.4) fL Immature Gran % (Auto) (0.0-0.4) % Neut % (Auto) (45-73) % Lymph % (Auto) (20-40) % Barry % (Auto) (2-11) % Eos % (Auto) (0-4) % Baso % (Auto) (0-2) % Lymph # (Auto) (1.2-4.9) X10*3/uL Barry # (Auto) (0.1-1.2) X10*3/uL Eos # (Auto) (0.0-0.4) X10*3/uL Baso # (Auto) (0.0-0.2) X10*3/uL Abs Immat Gran (auto) (0.00-0.03) X10*3/uL Absolute Neuts (auto) (2.0-8.3) x10*3/uL Absolute Nucleated RBC (0.0-0.012) X10*3/uL Nucleated RBC % (auto) (0.0-0.2) /100WBC PT 12.9 (11.1-13.3) SEC INR 1.1 (0.9-1.1) aPTT Heparin Protocol 29.4 L (53-77.9) SEC D-Dimer High Sensitivty 762 NG/ML Sodium (135-145) mmol/L Potassium (3.3-5.1) mmol/L Chloride (96-108) mmol/L Carbon Dioxide (22-29) mmol/L Anion Gap (12-20) BUN (9-16) mg/dL Creatinine (0.5-1.4) mg/dL Estim Creat Clear Calc Estimated GFR Random Glucose (60-115) mg/dL Calcium (8.4-10.2) mg/dL Total Bilirubin (0.0-1.0) mg/dL AST (5-37) U/L ALT (0-40) U/L Alkaline Phosphatase (39-117) U/L Troponin I High Sens 8.1 D (<3.5-35.0) ng/L Total Protein (6.5-8.0) g/dL Albumin (3.5-5.0) g/dL Independent Interpretation I performed an independent interpretation of an: EKG (Normal sinus rhythm at 59 beats per minute, normal axis deviation, normal intervals, no ST-T changes.), Plain X-Ray (No acute pathology.) and CT Scan (Chest angiogram:Right lower lobe and right middle lobe pulmonary emboli. ) Radiology Impression Discussion of test interpretation with radiology: I have reviewed the radiolog ist's reading. Critical Care Time Critical Care Time Critical Care Time: Yes Total Critical Care Time: 60 Attestation: I spent 60 minutes providing critical care service to the patient, this including time spent at the bedside to evaluate the patient, reassess the patient, monitoring vital signs, review labs, and radiographic studies, counseling the patient/family, discussing the case with consultants, disposition the patient. Discharge Plan Discharge Clinical Impression: Pulmonary embolism Patient Disposition: Admitted As Inpatient
[2023-05-16 11:40] LABS: Alanine Aminotransferase 15 U/L (0-40); Albumin Level 4.1 g/dL (3.5-5.0); Alkaline Phosphatase 74 U/L (39-117); Anion Gap 10 (12-20); Aspartate Amino Transferase 12 U/L (5-37); Bilirubin Total 0.8 mg/dL (0.0-1.0); Blood Urea Nitrogen 12 mg/dL (9-16); Calcium 9.4 mg/dL (8.4-10.2); Carbon Dioxide 30 mmol/L (22-29); Chloride 107 mmol/L (96-108); Creatinine Clr Calc Pharmacy 81.9; Estimated Glomerular Filt Rate 55; Glucose Random 104 mg/dL (60-115); Potassium 4.3 mmol/L (3.3-5.1); Sodium 143 mmol/L (135-145); Total Protein 7.5 g/dL (6.5-8.0)
[2023-05-16 11:50] LABS: Troponin-I High Sensitivity 3.4 ng/L (<3.5-35.0)
[2023-05-16 12:07] LABS: D Dimer High Sensitivity 762 NG/ML
--- NOTE | 2023-05-16 13:25 | PC.NURSE ---
([facility] [place] AWARE OF PT'S HR FROM 71 ON ARRIVAL TO ER AND NOW 46. PT IS ASYMPTOMATIC . PT CONTINUES ON ENGRAVER APPRENTICE DECORATIVE.
[2023-05-16] MEDS: iohexoL 350 MG/ML 100 ML INFUS..BTL 65 ML IV (14:08)
[2023-05-16 15:36] LABS: INTERNATIONAL NORM RATIO 1.1 (0.9-1.1); Prothrombin Time 12.9 SEC (11.1-13.3)
[2023-05-16 15:39] LABS: PTT Heparin Drip 29.4 SEC (53-77.9)
[2023-05-16 15:43] LABS: Troponin-I High Sensitivity 8.1 ng/L (<3.5-35.0)
--- NOTE | 2023-05-16 15:43 | MHC.EDTECH ---
this pct assumed care of patient at 1500 ,vitals sign taken ,and patient belongings list done .
[2023-05-16] MEDS: Heparin Sodium,Porcine 5,000 UNIT/ML VIAL 8500 UNIT IVPUSH (15:59)
--- NOTE | 2023-05-16 15:59 | PHA.MEDREC ---
Pharmacy Consult ? Medication Reconciliation Pharmacy has completed the medication reconciliation. Patient had list of medications with names. Patient was able to report directions for all medications. Neeru Patel, ShaylaD
[2023-05-16] MEDS: Heparin Sodium,Porcine/1/2NS 25,000 UNIT/250 ML IV.SOLN 14.92 UNIT IVCONT (16:12)
--- NOTE | 2023-05-16 16:18 | PM.IMHP ---
History of Present Illness Date of Service: 05/16/23 Chief Complaint: chest pain, palpitations A 47 years old male with PMH of HTN, anxiety who presents to the hospital complaining of chest pain and palpitations of acute onset this morning. The patient more of sedentary life style as he resides in a halfway and uses a cane to ambulate small distences. reported that today while sitting he felt sudden onset palpitations with central chest pain. denies any fever, chills, cough, nausea, vomiting, diarrhea or urinary symptoms. Denies smoking or recent travel. No family hx of cancer or blood disorders. Found to have acute PE. started on Heparin drip and admitted for medical management. Review of Systems Review of Systems: Constitutional : Awake, interactive, not in distress Neck : Normal inspection, Supple Cardiovascular : RRR, no JVP, no lower extremity edema Respiratory : good bilateral air entry, no crackles, wheezes or rhonchi Gastrointestinal: soft, lax, Normal bowel sounds, Non tender Skin : Warm, Dry Neurological : Alert & oriented x3, No focal deficit [facility] Medical History HTN (hypertension) Social History Alcohol intake: never Advance Directives: No Advance Directives Information Provided: Yes Meds Allergies Allergy/AdvReac Type Severity Reaction Status Date / Time aspirin [ASA] Allergy Unknown Verified 03/30/23 18:48 ibuprofen Allergy Anaphylaxis Verified 03/30/23 21:12 Active Medications: Current Medications Heparin Sodium (Porcine) (Heparin Sodium,Porcine 5,000 Unit/Ml Vial) 4,300 unit 40 unit/kg (4300 unit) IVPUSH PROTOCOL BOLUS PRN; Protocol PRN Reason: 40 unit/kg - Heparin Protocol Heparin Sodium (Porcine) (Heparin Sodium,Porcine 5,000 Unit/Ml Vial) 8,500 unit 80 unit/kg (8500 unit) IVPUSH PROTOCOL BOLUS PRN; Protocol PRN Reason: 80 unit/kg - Heparin Protocol Heparin Sodium/Sodium Chloride (Heparin Sodium,Porcine/1/2ns) 25,000 unit in 250 mls @ 0 mls/hr IVCONT .Q0M NIKKY; Protocol Last Admin: 05/16/23 16:12 Dose: 14 units/kg/hr, 14.92 mls/hr Home Medications Medication Instructions Recorded Confirmed Last Taken Type aripiprazole 15 mg tablet 7.5 mg PO BEDTIME 05/16/23 05/16/23 05/15/23 History atenolol 25 mg tablet 25 mg PO DAILY 05/16/23 05/16/23 12/14/22 History baclofen 20 mg tablet 20 mg PO BID PRN Muscle Spasm 05/16/23 05/16/23 Unknown History buspirone 30 mg tablet 30 mg PO BID PRN Anxiety 05/16/23 05/16/23 Unknown History fluticasone propionate 50 2 spray intranasal DAILY 05/16/23 05/16/23 05/15/23 History mcg/actuation nasal spray,suspension gabapentin 300 mg capsule 300 mg PO TID 05/16/23 05/16/23 05/15/23 History trazodone 100 mg tablet 100 mg PO BEDTIME 05/16/23 05/16/23 05/15/23 History Physical Exam Vital Signs and Narrative: Vital Signs: Last Vital Signs Temp 98.3 F 05/16/23 15:36 Pulse 60 05/16/23 15:36 Resp 15 05/16/23 15:36 BP 124/61 05/16/23 15:36 Pulse Ox 98 05/16/23 15:36 O2 Del Method Room Air 05/16/23 15:36 BMI result Body Mass Index 32.8 Results Labs 05/16/23 11:18 05/16/23 11:18 Labs: Laboratory Results - last 24 hr 05/16/23 05/16/23 05/16/23 11:18 11:18 11:50 MCV 92.7 MCH 30.1 MCHC 32.5 RDW 12.3 Plt Count 287 MPV 9.8 Immature Gran % (Auto) 0.1 Neut % (Auto) 72.2 Lymph % (Auto) 21.1 [place] % (Auto) 6.0 Eos % (Auto) 0.3 Baso % (Auto) 0.3 Lymph # (Auto) 1.4 [place] # (Auto) 0.4 Eos # (Auto) 0.0 Baso # (Auto) 0.0 Abs Immat Gran (auto) 0.01 Absolute Neuts (auto) 4.9 Absolute Nucleated RBC 0.000 Nucleated RBC % (auto) 0.0 PT 12.9 INR 1.1 aPTT Heparin Protocol 29.4 L D-Dimer High Sensitivty 762 Anion Gap 10 L Estim Creat Clear Calc 81.9 Estimated GFR 55 Random Glucose 104 Calcium 9.4 Total Bilirubin 0.8 AST 12 ALT 15 Alkaline Phosphatase 74 Total Protein 7.5 Albumin 4.1 Imaging Radiologist's Impressions: Impressions Chest CTA 05/16/23 14:23 IMPRESSION: Right lower lobe and right middle lobe pulmonary emboli. VTE: Positive Assessment and Plan (1) Pulmonary embolism: Status: Acute Plan A 47 years old male with PMH of HTN, anxiety who presents to the hospital complaining of chest pain and palpitations of acute onset this morning. Acute PE Unclear etiology; no travel, smoking or drug use Confirmed by CTA check US LE will need further work up as outpatient continue heparin drip for tonight and change to PO NOAC tomorrow Follow PTT HTN continue Atenolol Mood disorder Buspirone, Trazodone DVT PPx Heparin The patient will likely need overnight hospital stay for Acute PE on Heparin drip pending US LE Time Spent With Patient Time: Total time managing care of this patient today ____ minutes. Quality Stroke Does the patient have a stroke diagnosis?: No VTE Prior VTE?: No VTE Risk Level:: Medical - moderate - high VTE Device Contraindication: Treatment Not Indicated VTE Drug Contraindication: N/A - Med Ordered
[2023-05-16 18:10] LABS: Appearance Urine Clear; Color Urine Yellow; Glucose Urine UA Negative (Negative); Leukocyte Esterase Urine Negative (Negative); Nitrite Urine Negative (Negative); Specific Gravity - Urine 1.015 (1.005-1.025); Urine Blood Negative (Negative); Urine Ketones Negative (Negative); Urine Protein Negative (Neg-Trace)
--- NOTE | 2023-05-16 22:17 | MHC.EDTECH ---
PTT DRAWN AND SENT TO LAB .
[2023-05-16] MEDS: traZODone HCL 100 MG TABLET PO (22:19)
[2023-05-16] MEDS: Gabapentin 300 MG CAPSULE PO (22:19)
[2023-05-16 22:47] LABS: PTT Heparin Drip > 200.0 SEC (53-77.9)
[2023-05-17] VITALS: BP 121/59; PULSE 52; RESP 16; TEMP 36.9; O2SAT 95
--- NOTE | 2023-05-17 | ECG_ITS ---
Test Reason : CP Blood Pressure : / mmHG Vent. Rate : 047 BPM Atrial Rate : 047 BPM P-R Int : 166 ms QRS Dur : 096 ms QT Int : 432 ms P-R-T Axes : 035 021 010 degrees QTc Int : 382 ms Sinus bradycardia Otherwise normal ECG When compared with ECG of 16-MAY-2023 11:13, No significant change was found Referred By: Jarrod Rios Electronically Signed By:CYNTHIA ANG
[2023-05-17 00:10] LABS: PTT Heparin Drip 106.5 SEC (53-77.9)
[2023-05-17] MEDS: ARIPiprazole 15 MG TABLET 7.5 MG PO (00:22)
[2023-05-17 01:14] LABS: PTT Heparin Drip 55.8 SEC (53-77.9)
[2023-05-17 04:00] VITALS: BP 94/50; PULSE 45; RESP 14; TEMP 36.5; O2SAT 100
[2023-05-17] MEDS: Acetaminophen 325 MG TABLET 650 MG PO (04:33)
[2023-05-17 07:05] VITALS: BP 113/67; PULSE 51; RESP 20; TEMP 36.9; O2SAT 96
[2023-05-17 07:41] LABS: Hematocrit 42.9 % (42.0-52.0); Hemoglobin 13.9 g/dl (14.0-18.0); Mean Corpuscular HGB Conc 32.4 g/dl (31.0-36.0); Mean Corpuscular Volume 92.5 fL (80.0-98.0); Platelet Count 280 X10*3/uL (160-400); Red Blood Count 4.64 X10*6/uL (4.60-5.80); Red Cell Distribution Width 12.3 % (11.0-16.0); White Blood Count 7.2 X10*3/uL (4.8-10.8)
[2023-05-17 07:51] LABS: Anion Gap 11 (12-20); Blood Urea Nitrogen 14 mg/dL (9-16); Calcium 9.4 mg/dL (8.4-10.2); Carbon Dioxide 28 mmol/L (22-29); Chloride 106 mmol/L (96-108); Creatinine Clr Calc Pharmacy 83.1; Estimated Glomerular Filt Rate 56; Glucose Random 95 mg/dL (60-115); Potassium 4.4 mmol/L (3.3-5.1); Sodium 141 mmol/L (135-145)
[2023-05-17 07:52] LABS: INTERNATIONAL NORM RATIO 1.1 (0.9-1.1); Prothrombin Time 12.8 SEC (11.1-13.3)
[2023-05-17 07:55] LABS: PTT Heparin Drip 64.5 SEC (53-77.9)
[2023-05-17] MEDS: atenoloL 25 MG TABLET PO (08:45)
[2023-05-17] MEDS: Gabapentin 300 MG CAPSULE PO (08:45)
[2023-05-17] MEDS: Apixaban 5 MG TABLET 10 MG PO (08:45)
[2023-05-17] MEDS: 0.9 % Sodium Chloride Flush 3 ML SYRINGE IVFLUSH (08:46)
--- NOTE | 2023-05-17 09:11 | MHC.CM.PN ---
Pt SSO, admitted with dx R/O subdural, c/o dizziness and loss of balance and chest pain. Pt lives at a halfway and uses a cane. D/C plan to return to halfway when medically cleared, will need assistance with transportation. No HCP. PCP: Emerald Valentin
[2023-05-17 11:26] VITALS: BP 109/61; PULSE 49; RESP 20; TEMP 36.9; O2SAT 96
--- NOTE | 2023-05-17 12:03 | P.DS_ITS ---
DS: Providers Provider Date of Service: 05/17/23 Date of admission: 05/16/23 16:16 Primary care physician: LISSETTE Jensen DS: Diagnosis Discharge Diagnosis (1) Pulmonary embolism: Status: Acute DS: Summary Hospital Course Hospital Course: Admission note HPI A 47 years old male with PMH of HTN, anxiety who presents to the hospital complaining of chest pain and palpitations of acute onset this morning. The patient more of sedentary life style as he resides in a retirement and uses a cane to ambulate small distences. reported that today while sitting he felt sudden onset palpitations with central chest pain. denies any fever, chills, cough, nausea, vomiting, diarrhea or urinary symptoms. Denies smoking or recent travel. No family hx of cancer or blood disorders. Found to have acute PE. started on Heparin drip and admitted for medical management. Hospital course The patient was admitted for Acute PE with unclear etiology; no travel, smoking or drug use as it was Confirmed by CTA with no reported heart strain negative US LE for DVT. Treated with IV Heparin with good response as chest pain and dyspnea improved. will need further work up as outpatient for the reason behind his clot. hypercoagulable work up was not sent as Heparin might give false negative values. to be checked as OP. The patient made a quick recovery and will not need 2 night stay in the hospital. will discharge him with a plan to follow with his PCP. Take Apixaban 10 mg (two tablets) twice for 7 days then decrease to 5mg (1 tablet) twice a day to finish 6 months treatment To follow with PCP for further evaluation of the reason behind developing the clot Time Spent with Patient Time attestation: Total time managing care of this patient today ____ minutes. Discharge coordination time: Greater than 30 minutes Quality: Safe Use of Opioids Does Pt have an Active Cancer Diagnosis on the Problem List?: No Quality: Stroke Does the patient have a stroke diagnosis?: No Physical Exam Vital Signs: Vital Signs: Last Vital Signs Temp 98.4 F 05/17/23 11:26 Pulse 49 L 05/17/23 11:26 Resp 20 05/17/23 11:26 BP 109/61 05/17/23 11:26 Pulse Ox 96 05/17/23 11:26 O2 Del Method Room Air 05/17/23 11:26 BMI result Body Mass Index 32.8 Const: Other: Constitutional : Awake, interactive, not in distress Neck : Normal inspection, Supple Cardiovascular : RRR, no JVP, no lower extremity edema Respiratory : good bilateral air entry, no crackles, wheezes or rhonchi Gastrointestinal: soft, lax, Normal bowel sounds, Non tender Skin : Warm, Dry Neurological : Alert & oriented x3, No focal deficit , CN 2-12 within normal DS: Data Data Completed and Pending Labs on day of discharge: Laboratory Results - last 24 hr 05/16/23 05/16/23 05/16/23 11:50 15:10 17:55 WBC RBC Hgb Hct MCV MCH MCHC RDW Plt Count MPV Absolute Nucleated RBC Nucleated RBC % (auto) PT 12.9 INR 1.1 aPTT Heparin Protocol 29.4 L D-Dimer High Sensitivty 762 Sodium Potassium Chloride Carbon Dioxide Anion Gap BUN Creatinine Estim Creat Clear Calc Estimated GFR Random Glucose Calcium Troponin I High Sens 8.1 D Urine Color Yellow Urine Appearance Clear Urine pH 6.0 Ur Specific [place] 1.015 Urine Protein Negative Urine Glucose (UA) Negative Urine Ketones Negative Urine Blood Negative Urine Nitrite Negative Ur Leukocyte Esterase Negative 05/16/23 05/16/23 05/17/23 22:14 23:45 00:48 WBC RBC Hgb Hct MCV MCH MCHC RDW Plt Count MPV Absolute Nucleated RBC Nucleated RBC % (auto) PT INR aPTT Heparin Protocol > 200.0 H* D 106.5 H D 55.8 D D-Dimer High Sensitivty Sodium Potassium Chloride Carbon Dioxide Anion Gap BUN Creatinine Estim Creat Clear Calc Estimated GFR Random Glucose Calcium Troponin I High Sens Urine Color Urine Appearance Urine pH Ur Specific [place] Urine Protein Urine Glucose (UA) Urine Ketones Urine Blood Urine Nitrite Ur Leukocyte Esterase 05/17/23 05/17/23 05/17/23 07:18 07:18 07:18 WBC 7.2 RBC 4.64 Hgb 13.9 L Hct 42.9 MCV 92.5 MCH 30.0 MCHC 32.4 RDW 12.3 Plt Count 280 MPV 10.0 Absolute Nucleated RBC 0.000 Nucleated RBC % (auto) 0.0 PT 12.8 INR 1.1 aPTT Heparin Protocol D-Dimer High Sensitivty Sodium 141 Potassium 4.4 Chloride 106 Carbon Dioxide 28 Anion Gap 11 L BUN 14 Creatinine 1.35 Estim Creat Clear Calc 83.1 Estimated GFR 56 Random Glucose 95 Calcium 9.4 Troponin I High Sens Urine Color Urine Appearance Urine pH Ur Specific [place] Urine Protein Urine Glucose (UA) Urine Ketones Urine Blood Urine Nitrite Ur Leukocyte Esterase 05/17/23 07:18 WBC RBC Hgb Hct MCV MCH MCHC RDW Plt Count MPV Absolute Nucleated RBC Nucleated RBC % (auto) PT INR aPTT Heparin Protocol 64.5 D-Dimer High Sensitivty Sodium Potassium Chloride Carbon Dioxide Anion Gap BUN Creatinine Estim Creat Clear Calc Estimated GFR Random Glucose Calcium Troponin I High Sens Urine Color Urine Appearance Urine pH Ur Specific [place] Urine Protein Urine Glucose (UA) Urine Ketones Urine Blood Urine Nitrite Ur Leukocyte Esterase Imaging CT scan - chest: Radiologist's impression: ITS Impressions Chest CTA 05/16/23 14:23 IMPRESSION: Right lower lobe and right middle lobe pulmonary emboli. VTE: Positive Venous Duplex 05/16/23 18:00 IMPRESSION: No DVT demonstrated in bilateral lower extremities. Discharge Plan Discharge Anticipated Discharge Date/Time: 05/17/23 11:57 Patient Disposition: Home, Self-Care Discharge Diagnosis: Acute pulmonary embolism Referrals: Emerald Valentin PA [Primary Care Provider] - 1 Week Discharge Medications: New Eliquis 5 mg Tablet 10 mg PO BID Qty: 26 0RF Eliquis 5 mg tablet 5 mg PO BID Qty: 120 2RF Continued atenolol 25 mg tablet 25 mg PO DAILY baclofen 20 mg tablet 20 mg PO BID PRN (Reason: Muscle Spasm) trazodone 100 mg tablet 100 mg PO BEDTIME buspirone 30 mg tablet 30 mg PO BID PRN (Reason: Anxiety) gabapentin 300 mg capsule 300 mg PO TID fluticasone propionate 50 mcg/actuation spray,suspension 2 spray intranasal DAILY aripiprazole 15 mg tablet 7.5 mg PO BEDTIME Discharge Orders: Discharge Order (Routine); Ordered 05/17/23 Ordered By: Jarrod Rios Diet: Advance to usual diet Activity on Discharge: As tolerated Stand Alone Forms: Patient Portal Discharge page Care Plan Goals: Read below Health Concerns: Read below Plan of Treatment: Read below Assessment: Admitted for evaluation of chest pain. found to have a clot in your lung in chest images. treated with IV blood thinners with good response. Take Apixaban 10 mg (two tablets) twice for 7 days then decrease to 5mg (1 tablet) twice a day to finish 6 months treatment To follow with PCP for further evaluation of the reason behind developing the clot
--- NOTE | 2023-05-17 12:24 | MHC.CM.PN ---
Pt medically cleared for D/C back to [facility]. Transport via [facility] shuttle.
== END 2023-05-17 12:55 | disposition home or self-care (01) | DRG 134 ==
LOC: HO.ED 15:41 → HO.EDOVER 16:21 → HO.IMC 19:25
PROVIDERS: Admitting Provider Student in an Organized Health Care Education/Training Program; Emergency Provider Emergency Medicine; PCP Physician Assistant Medical; Visit Provider Student in an Organized Health Care Education/Training Program
DX: I26.99 Other pulmonary embolism without acute cor pulmonale (principal); F39 Unspecified mood [affective] disorder; I10 Essential (primary) hypertension; Z87.891 Personal history of nicotine dependence; Z79.51 Long term (current) use of inhaled steroids; Z79.899 Other long term (current) drug therapy
CPT/HCPCS: 36415; 71275; 80048; 80053; 81003; 84484; 85025; 85027; 85379; 85610; 85730; 93005; 93970; 99222; 99285; J1643; Q9967

== ENCOUNTER → 2023-05-16 16:16 | Outpatient (BNV) | payer OTHER, SELFPAY | PROVIDERS: Admitting Provider Student in an Organized Health Care Education/Training Program; Emergency Provider Emergency Medicine; PCP Physician Assistant Medical; Visit Provider Student in an Organized Health Care Education/Training Program | DX: I26.99 Other pulmonary embolism without acute cor pulmonale (principal) | CPT/HCPCS: 99223; 99239 ==

== ENCOUNTER 2024-10-08 21:51 | Emergency (ER) | payer OTHER, SELFPAY ==
--- NOTE | 2024-10-08 | ECG_ITS ---
Test Reason : CHEST PAIN Blood Pressure : */* mmHG Vent. Rate : 103 BPM Atrial Rate : 103 BPM P-R Int : 156 ms QRS Dur : 80 ms QT Int : 306 ms P-R-T Axes : 39 41 -15 degrees QTcB Int : 400 ms Sinus tachycardia Nonspecific ST and T wave abnormality Abnormal ECG When compared with ECG of 17-May-2023 04:33, Vent. rate has increased by [address] now depressed in Lateral leads T wave inversion more evident in Inferior leads Nonspecific T wave abnormality now evident in Lateral leads Referred By: Generic ED Physician Electronically Signed By: ANGELA LEWIS
--- NOTE | ~2024-10-08 | XR_ITS ---
CLINICAL HISTORY: chest pain Chest X-ray, 2 Views COMPARISON: CR/SR - XR CHEST 1V - 03/02/23 09:55 EDT FINDINGS: No consolidation. No pleural effusion. No pneumothorax. Stable mild cardiomegaly. No acute fracture. IMPRESSION: No acute findings. This document has been electronically signed by: Darin Buenrostro MD on 10/08/2024 22:52:51
[2024-10-08 21:56] VITALS: BP 159/85; PULSE 121; O2SAT 97
[2024-10-08 22:07] VITALS: BP 139/96; PULSE 97; RESP 24; O2SAT 97; BMI 36.2
[2024-10-08 22:13] LABS: MANUAL DIFF FLAG NO
[2024-10-08 22:14] LABS: Basophils Percent Auto 0.3 % (0-2); Eosinophils Absolute Auto 0.1 X10*3/uL (0.0-0.4); Eosinophils Percent Auto 1.2 % (0-4); Hematocrit 42.8 % (42.0-52.0); Hemoglobin 14.4 g/dl (14.0-18.0); Imm Gran Abs Auto 0.02 X10*3/uL (0.00-0.03); Imm Gran Pct Auto 0.2 % (0.0-0.4); Lymphocytes Absolute Auto 3.4 X10*3/uL (1.2-4.9); Lymphocytes Percent Auto 32.2 % (20-40); Mean Corpuscular HGB Conc 33.6 g/dl (31.0-36.0); Mean Corpuscular Hemoglobin 29.8 pg (27.0-33.0); Mean Corpuscular Volume 88.4 fL (80.0-98.0); Mean Platelet Volume 9.6 fL (9.4-12.4); Monocytes Absolute Auto 0.6 X10*3/uL (0.1-1.2); Monocytes Percent Auto 5.8 % (2-11); Neutrophils Absolute Auto 6.3 x10*3/uL (2.0-8.3); Neutrophils Percent Auto 60.3 % (45-73); Platelet Count 285 X10*3/uL (160-400); Red Blood Count 4.84 X10*6/uL (4.60-5.80); Red Cell Distribution Width 12.4 % (11.0-16.0); White Blood Count 10.4 X10*3/uL (4.8-10.8)
[2024-10-08 22:28] LABS: Alanine Aminotransferase 25 U/L (0-40); Albumin Level 4.2 g/dL (3.5-5.0); Alkaline Phosphatase 83 U/L (39-117); Anion Gap 10 (12-20); Aspartate Amino Transferase 20 U/L (5-37); Bilirubin Total 0.5 mg/dL (0.0-1.0); Blood Urea Nitrogen 17 mg/dL (9-16); Carbon Dioxide 24 mmol/L (22-29); Chloride 109 mmol/L (96-108); Creatinine Clr Calc Pharmacy 93.2; Estimated Glomerular Filt Rate > 60; Glucose Random 166 mg/dL (60-115); Potassium 3.4 mmol/L (3.3-5.1); Sodium 140 mmol/L (135-145); Total Protein 7.7 g/dL (6.5-8.0)
[2024-10-08 22:34] LABS: Troponin-I High Sensitivity 5.6 ng/L (<3.5-35.0)
--- NOTE | 2024-10-08 23:09 | PC.NURSE ---
Pt is a&ox4, no signs of distress. Pt reports 6/10 cp, and headache of 4/10. Pt denies n/v or radiating pain Plan of care ongoing.
--- NOTE | 2024-10-09 00:51 | ED_ITS ---
HPI - Chest Pain General Chief Complaint: Chest Pain Stated Complaint: chest pain, dizziness Time Seen by Provider: 10/09/24 00:40 Source: patient Mode of arrival: ambulatory Limitations: no limitations History of Present Illness ED Provider: HPI narrative: Patient's history of hypertension anxiety pulmonary embolism finished Eliquis after taking for 6 months comes here for chest pain and elevated blood pressure of 175/100 patient was given nitroglycerin 0.4 mg by the EMS with no relief feels like chest pressure started at 21:00 patient's checked his blood pressure as having mild headache it was 175/108 repeat blood pressure was 149/77 Related Data Home Medications ?Medication ?Instructions ?Recorded ?Confirmed aripiprazole 15 mg tablet 7.5 mg PO BEDTIME 05/16/23 05/16/23 atenolol 25 mg tablet 25 mg PO DAILY 05/16/23 05/16/23 baclofen 20 mg tablet 20 mg PO BID PRN Muscle Spasm 05/16/23 05/16/23 buspirone 30 mg tablet 30 mg PO BID PRN Anxiety 05/16/23 05/16/23 fluticasone propionate 50 2 spray intranasal DAILY 05/16/23 05/16/23 mcg/actuation nasal spray,suspension gabapentin 300 mg capsule 300 mg PO TID 05/16/23 05/16/23 trazodone 100 mg tablet 100 mg PO BEDTIME 05/16/23 05/16/23 Previous Rx's ?Medication ?Instructions ?Recorded apixaban 5 mg tablet (Eliquis) 5 mg PO BID #120 tabs 05/17/23 apixaban 5 mg tablet (Eliquis) 10 mg (2 x 5 mg) PO BID #26 tabs 05/17/23 Allergies Allergy/AdvReac Type Severity Reaction Status Date / Time aspirin [ASA] Allergy Unknown Verified 10/08/24 22:15 ibuprofen Allergy Anaphylaxis Verified 10/08/24 22:15 Review of Systems 2 Review of Systems: Yes all other systems are reviewed and are negative PMFSH Past Medical History Medical History HTN (hypertension) Pulmonary embolism Social History Social History Housing: Other Housing Other:: snf Do you presently have visiting nurse or other home services: No Alcohol intake: never Patient Tobacco Use Status: Former Tobacco user Tobacco use type: Cigarette Smoked in Last 30 Days: No Use of substances other than those prescribed or required for medical reasons: No Advance Directives: No Advance Directives Information Provided: Yes Do you have a plan to hurt others: No Plan service: No Physical Exam 2 Vital Signs: Vital Signs: Last Vital Signs Temp 98.8 F 10/09/24 06:13 Pulse 74 10/09/24 06:13 Resp 14 10/09/24 06:13 BP 124/81 10/09/24 06:13 Pulse Ox 94 10/09/24 06:13 O2 Del Method Room Air 10/09/24 06:13 BMI result Body Mass Index 36.2 Appearance: Alert. Oriented X3. No acute distress. Eyes: PERRLA, No Nystagmus ENT: Pharynx normal. Oral Mucosa moist Neck: Normal inspection. Neck supple. CVS: Normal heart rate and rhythm. Pulses normal. Respiratory: No respiratory distress. Equal air entry bilateral, no wheezing/rales/rhonchi Abdomen: Soft and nontender. Bowel sounds are present, no mass palpable, no CVA tenderness Skin: Skin warm and dry. Normal skin color. Normal skin turgor. Extremities: No lower extremity edema. No calf tenderness Neuro: Oriented X 3. No motor deficit. No sensory deficit.No cerebellar signs , cranial nerves II-XII intact Medical Decision Making Differential Diagnosis Differential Diagnoses: The differential diagnosis associated with the presentation includes Lab Data MDM Lab Attestation statement: I reviewed the patient's lab results. 10/08/24 22:10 10/08/24 22:10 Labs: Lab Results 10/08/24 10/09/24 Range/Units 22:10 01:41 WBC 10.4 (4.8-10.8) X10*3/uL RBC 4.84 (4.60-5.80) X10*6/uL Hgb 14.4 (14.0-18.0) g/dl Hct 42.8 (42.0-52.0) % MCV 88.4 (80.0-98.0) fL MCH 29.8 (27.0-33.0) pg MCHC 33.6 (31.0-36.0) g/dl RDW 12.4 (11.0-16.0) % Plt Count 285 (160-400) X10*3/uL MPV 9.6 (9.4-12.4) fL Immature Gran % (Auto) 0.2 (0.0-0.4) % Neut % (Auto) 60.3 (45-73) % Lymph % (Auto) 32.2 (20-40) % [place] % (Auto) 5.8 (2-11) % Eos % (Auto) 1.2 (0-4) % Baso % (Auto) 0.3 (0-2) % Lymph # (Auto) 3.4 (1.2-4.9) X10*3/uL [place] # (Auto) 0.6 (0.1-1.2) X10*3/uL Eos # (Auto) 0.1 (0.0-0.4) X10*3/uL Baso # (Auto) 0.0 (0.0-0.2) X10*3/uL Abs Immat Gran (auto) 0.02 (0.00-0.03) X10*3/uL Absolute Neuts (auto) 6.3 (2.0-8.3) x10*3/uL Absolute Nucleated RBC 0.000 (0.0-0.012) X10*3/uL Nucleated RBC % (auto) 0.0 (0.0-0.2) /100WBC PT 12.6 H (10.9-12.4) SEC INR 1.1 (0.9-1.1) APTT 30.5 (26.0-36.8) SEC D-Dimer High Sensitivty 175 NG/ML Sodium 140 (135-145) mmol/L Potassium 3.4 (3.3-5.1) mmol/L Chloride 109 H (96-108) mmol/L Carbon Dioxide 24 (22-29) mmol/L Anion Gap 10 L (12-20) BUN 17 H (9-16) mg/dL Creatinine 1.20 (0.5-1.4) mg/dL Estim Creat Clear Calc 93.2 Estimated GFR > 60 Random Glucose 166 H (60-115) mg/dL Calcium 9.0 (8.4-10.2) mg/dL Total Bilirubin 0.5 (0.0-1.0) mg/dL AST 20 (5-37) U/L ALT 25 (0-40) U/L Alkaline Phosphatase 83 (39-117) U/L Troponin I High Sens 5.6 14.2 D (<3.5-35.0) ng/L Total Protein 7.7 (6.5-8.0) g/dL Albumin 4.2 (3.5-5.0) g/dL Independent Interpretation I performed an independent interpretation of an: EKG Interpretation: Sinus tachycardia with heart rate of 103 nonspecific STT wave changes no acute ST elevation no acute ischemic changes slight depression of the ST segment in lateral leads Discharge Plan Discharge Clinical Impression: Atypical chest pain Patient Disposition: Home, Self-Care Instructions: Noncardiac Chest Pain (ED) Additional Instructions: Continue medication for anxiety and for hypertension At this time does not show evidence of acute cardiac disease Prescriptions: No Action atenolol 25 mg tablet 25 mg PO DAILY baclofen 20 mg tablet 20 mg PO BID PRN (Reason: Muscle Spasm) trazodone 100 mg tablet 100 mg PO BEDTIME buspirone 30 mg tablet 30 mg PO BID PRN (Reason: Anxiety) gabapentin 300 mg capsule 300 mg PO TID fluticasone propionate 50 mcg/actuation spray,suspension 2 spray intranasal DAILY aripiprazole 15 mg tablet 7.5 mg PO BEDTIME Eliquis 5 mg Tablet 10 mg PO BID Qty: 26 0RF Eliquis 5 mg tablet 5 mg PO BID Qty: 120 2RF Interventions: ED Discharge Assessment Last Done: 10/09/24 06:13 Discharge Date/Time: 10/09/24 06:15 Print Language: [place] Island[place]
[2024-10-09 01:50] VITALS: BP 144/77; PULSE 70; RESP 16; TEMP 37.1; O2SAT 98
[2024-10-09 02:06] LABS: INTERNATIONAL NORM RATIO 1.1 (0.9-1.1); Prothrombin Time 12.6 SEC (10.9-12.4)
[2024-10-09 02:08] LABS: D Dimer High Sensitivity 175 NG/ML
[2024-10-09 02:09] LABS: Partial Thromboplastin Time 30.5 SEC (26.0-36.8)
[2024-10-09 02:12] LABS: Troponin-I High Sensitivity 14.2 ng/L (<3.5-35.0)
[2024-10-09 04:28] VITALS: BP 122/73; PULSE 73; RESP 18; TEMP 36.9; O2SAT 98
[2024-10-09 06:12] VITALS: BP 124/81; PULSE 74; RESP 14; TEMP 37.1; O2SAT 94
[2024-10-09 06:13] VITALS: BP 124/81; PULSE 74; RESP 14; TEMP 37.1; O2SAT 94
== END 2024-10-09 06:15 | disposition home or self-care (01) ==
PROVIDERS: Emergency Provider Internal Medicine
DX: R07.89 Other chest pain (principal); R00.0 Tachycardia, unspecified; R42 Dizziness and giddiness; Z79.01 Long term (current) use of anticoagulants; Z79.899 Other long term (current) drug therapy
CPT/HCPCS: 36415; 71046; 80053; 84484; 85025; 85379; 85610; 85730; 93005; 99283; 99285

== ENCOUNTER → 2024-10-08 21:59 | Outpatient (BNV) | payer OTHER, SELFPAY | PROVIDERS: Emergency Provider Internal Medicine; Visit Provider Internal Medicine | DX: R94.31 Abnormal electrocardiogram [ECG] [EKG] (principal) | CPT/HCPCS: 93010 ==

== ENCOUNTER → 2024-10-08 22:20 | Outpatient (BNV) | payer OTHER, SELFPAY | PROVIDERS: Visit Provider Radiology Diagnostic Radiology | DX: R07.9 Chest pain, unspecified (principal) | CPT/HCPCS: 71046 ==